=== PATIENT | female | born 1970 | race Hispanic/Latino ===

== ENCOUNTER → 2023-05-09 | Emergency (ER) | payer OTHER ==
[~2023-05-09] MED LIST: HYDROCODONE/APAP 5/325 MG TAB ONE; ONDANSETRON 4 MG (ODT) TAB ONE; methocarbamoL 750 MG TAB ONE
--- OUTSIDE RECORDS SUMMARY | 2023-05-09 17:14 | XMS REPORT | Continuity of Care Document ---
Author Name Unknown Address [address] [facility] [address] [place] [address] [facility] thconnect Address [address] [facility] [address] [place] [address] Care Team Providers Care Dining Room Manager Name Role Phone Kurt GIRARD, Kacie Pederson Primary Care Physician Sylvia Carrera Attending Clinician Unavailable LESLY CRUMP Attending Clinician Unavailable MARY LOMBARDI Attending Clinician Unavailable Doctor Unassigned, Kirkpatrick Attending Clinician U GREER Al Attending Clinician Unavailable Amanda Covington Attending Clinician [phone] Greer Rivers DO Attending Clinician [phone] Fara Villa MD Attending Clinician [phone] KACIE HICKS Attending Clinician Unava ilALFONZO Gordon Attending Clinician Unavaila ALFONZO Robert Attending Clinician Unavaila ble [id number] Attending Clinician Unavailable Kacie Hicks MD Attending Clinician [phone] Radiology Attending Clinician Unavailable RADIOLOGY Attending Clinician Unavailable Chet ABBOTT Diana J Attending Clinician [phone] Only, Adc Test Attending Clinician Unavailable Jarvis Flores MD Attending Clinician JARVIS FLORES Attending Clinician Unavailable FARA VILLA Admitting Clinician Unavailable Fara Villa MD Admitting Clinician [phone] Payers Payer Name Policy Type Policy Number Effective Date Expirati on Date Source CIGNA II [id number] 2019 00:00:00 CIGNA 53 [id number] 2018 00:00:00 [facility] CIGNA 2 [id number] 2021 00:00:00 CIGNA C1 [id number] [facility] CIGNA C1 [id number] [facility] CIGNA C1 [id number] [facility] CIGNA C1 [id number] [facility] CIGNA C1 [id number] [facility] Problems Condition Name Condition Details Condition Category Status Onset Date Resolution Date Last Treatment Date Treating Clinician Comments Source Obesity (BMI 30-39.9) Obesity (BMI 30-39.9) Disease Active 07-24 00:00: 00 [facility] Other chest pain Other chest pain Disease Active 07-24 00:00: 00 [facility] Type 1 diabetes mellitus without complicati on Type 1 diabetes mellitus without complicati on Disease Active 07-24 00:00: 00 [facility] Family history of early CAD Family history of early CAD Disease Active 07-24 00:00: 00 [facility] Primary hypertensi on Primary hypertensi on Disease Active 07-24 00:00: 00 [facility] Other hyperlipid emia Other hyperlipid emia Disease Active 07-24 00:00: 00 [facility] SAULO (acute kidney injury) SAULO (acute kidney injury) Disease Active 07-23 00:00: 00 [facility] Glaucoma Glaucoma Disease Active 2020-04 00:00: 00 Jayshree Seybold - Externa l 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, with long-term current use of insulin 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, with long-term current use of insulin Disease Active 2020-04 00:00: 00 Jayshree Seybold - Externa l Hypothyroi dism (acquired) Hypothyroi dism (acquired) Disease Active 2020-04 00:00: 00 Jayshree Seybold - Externa l Asthma Asthma Disease Active 2020-04 00:00: 00 Jayshree Seybold - Externa l Sleep apnea Sleep apnea Disease Active 2020-04 00:00: 00 Jayshree Seybold - Externa l No known active problems No known active problems Disease [facility] 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, bilateral Problem Active [facility] [id number] Presence of insulin pump Problem Active [facility] [id number] Hypothyroi dism, unspecifie d type Problem Active [facility] [id number] Hyperlipid emia, unspecifie d hyperlipid emia type Problem Active [facility] [id number] Open-angle glaucoma of both eyes, moderate stage, unspecifie d open-angle glaucoma type Problem Active [facility] [id number] Obstructiv e sleep apnea syndrome Problem Active [facility] Mild intermitte nt asthma Mild intermitte nt asthma without complicati on Problem Active [facility] [id number] Controlled type 1 diabetes mellitus with hyperglyce Problem Active [facility] [id number] White coat syndrome with diagnosis of hypertensi on Problem Active [facility] Allergies, Adverse Reactions, Alerts Allergy Name Allergy Type Status Severity Reaction(s) Onset Date Inactive Date Treating Clinician Comments Source NO KNOWN ALLERGIE S Drug Class Active [facility] Social History Social Habit Start Date Stop Date Quantity Comments Source History SDOH Alcohol Std Drinks [facility] History SDOH Alcohol Binge [facility] History SDOH Social Connections Get Together [facility] History SDOH Social Connections Latter Day [facility] History SDOH Social Connections Membership [facility] History SDOH Social Connections Meetings [facility] of [facility] Sex Assigned At [facility] Exposure to SARS-CoV-2 (event) 2022-07-14 00:00:00 2022-07-24 00:24:00 Not sure [facility] Tobacco use and exposure 2022-07-24 00:00:00 2022-07-24 00:00:00 Smokeless tobacco non-user [facility] History SDOH Alcohol Frequency 2022-07-24 00:00:00 2022-07-24 00:00:00 1 [facility] History SDOH Social Connections Phone 2022-07-24 00:00:00 2022-07-24 00:00:00 5 [facility] History SDOH Social Connections Living 2022-07-24 00:00:00 2022-07-24 00:00:00 3 [facility] History SDOH Physical Activity DPW 2022-07-24 00:00:00 2022-07-24 00:00:00 4 [facility] History SDOH Physical Activity MPS 2022-07-24 00:00:00 2022-07-24 00:00:00 2 [facility] History SDOH Financial 2022-07-24 00:00:00 2022-07-24 00:00:00 5 [facility] History SDOH Food Worry 2022-07-24 00:00:00 2022-07-24 00:00:00 1 [facility] History SDOH Food Scarcity 2022-07-24 00:00:00 2022-07-24 00:00:00 1 [facility] History SDOH Transport Med 2022-07-24 00:00:00 2022-07-24 00:00:00 2 [facility] History SDOH Transport Non-Med 2022-07-24 00:00:00 2022-07-24 00:00:00 2 [facility] History SDOH Housing Unable to Pay 2022-07-24 00:00:00 2022-07-24 00:00:00 2 [facility] History SDOH Housing Places Lived 2022-07-24 00:00:00 2022-07-24 00:00:00 1 [facility] History SDOH Housing Homeless Last Year 2022-07-24 00:00:00 2022-07-24 00:00:00 2 [facility] Education 2022-07-24 00:00:00 2022-07-24 00:00:00 18 [facility] History of Social function 2022-07-24 00:00:00 2022-07-24 00:00:00 [facility] Smoking Status Start Date Stop Date Source Never smoked tobacco [facility] Tobacco smoking consumption unknown [facility] Medications Ordered Medication Name Filled Medication Name Start Date Stop Date Current Medication? Ordering Clinician Indication Dosage Frequency Signature (SIG) Comments Components Source atorvastati n (LIPITOR) tablet 80 mg 07-25 02:00: 00 Yes 80mg 80 mg, Oral, QHS, First dose on Fri07/24/22 at 2100, Until Discontinu ed, Routine [facility] aspirin 81 mg chewable tablet 07-25 00:00: 00 08-25 04:59 :00 No [id number] 81mg Take 1 tablet by mouth in the morning for 30 days. [facility] aspirin 81 mg chewable tablet 07-25 00:00: 00 08-25 04:59 :00 No [id number] 81mg Take 1 tablet by mouth in the morning for 30 days. [facility] ergocalcife rol, vitamin d2, (VITAMIN D2) 1,250 mcg (50,000 unit) capsule 07-24 17:48: 03 Yes [id number] Take 1 capsule by mouth weekly. [facility] levothyroxi ne 112 mcg tablet 07-24 17:48: 03 Yes 112ug Take 1 tablet by mouth every morning. [facility] diltiazem 120 mg 24 hr capsule 07-24 17:48: 03 Yes 120mg Take 1 capsule by mouth in the morning. [facility] atorvastati n 80 mg tablet 07-24 17:48: 03 Yes 80mg Take 1 tablet by mouth at bedtime. [facility] irbesartan 300 mg tablet 07-24 17:48: 03 Yes 300mg Take 1 tablet by mouth in the morning. [facility] fluticasone furoate-alexandra anteroL (BREO ELLIPTA) 200-25 mcg/dose DsDv 07-24 17:48: 03 Yes 1{puff} Inhale 1 Puff in the morning. [facility] brimonidine -dorzolamid e, PF, 0.15-2 % Drop 07-24 17:48: 03 Yes 1[drp] Place 1 Drop in each eye in the morning and 1 Drop in the evening. [facility] latanoprost 0.005 % ophthalmic drops 07-24 17:48: 03 Yes 1[drp] 1 Drop every evening. [facility] dulaglutide (TRULICITY) 3 mg/0.5 mL PnIj 07-24 17:48: 03 Yes 3mg inject 1 Pen under the skin weekly. [facility] ergocalcife rol, vitamin d2, (VITAMIN D2) 1,250 mcg (50,000 unit) capsule 07-24 17:48: 03 Yes [id number] Take 1 capsule by mouth weekly. [facility] levothyroxi ne 112 mcg tablet 07-24 17:48: 03 Yes 112ug Take 1 tablet by mouth every morning. [facility] diltiazem 120 mg 24 hr capsule 07-24 17:48: 03 Yes 120mg Take 1 capsule by mouth in the morning. [facility] atorvastati n 80 mg tablet 07-24 17:48: 03 Yes 80mg Take 1 tablet by mouth at bedtime. [facility] irbesartan 300 mg tablet 07-24 17:48: 03 Yes 300mg Take 1 tablet by mouth in the morning. [facility] fluticasone furoate-alexandra anteroL (BREO ELLIPTA) 200-25 mcg/dose DsDv 07-24 17:48: 03 Yes 1{puff} Inhale 1 Puff in the morning. [facility] brimonidine -dorzolamid e, PF, 0.15-2 % Drop 07-24 17:48: 03 Yes 1[drp] Place 1 Drop in each eye in the morning and 1 Drop in the evening. [facility] latanoprost 0.005 % ophthalmic drops 07-24 17:48: 03 Yes 1[drp] 1 Drop every evening. [facility] dulaglutide (TRULICITY) 3 mg/0.5 mL PnIj 07-24 17:48: 03 Yes 3mg inject 1 Pen under the skin weekly. [facility] sulfur hexafluorid e microsphr (LUMASON) injection 5 mL 07-24 16:00: 00 07-24 16:00 :00 No [id number] 5mL 5 mL, Intravenou s, ONCE, 1 dose, On Fri07/24/22 at 1100, Routine
cruise staff member approving Restricted medication : ESTUARDO POOLE [facility] diltiazem XR (DILT-XR) capsule 120 mg 07-24 14:00: 00 Yes 120mg 120 mg, Oral, DAILY, First dose on Fri07/24/22 at 0900, Until Discontinu ed [facility] ergocalcife rol (vitamin d2) (CALCIFEROL ) capsule 50,000 Units 07-24 14:00: 00 Yes [id number] 50,000 Units, Oral, QWEEKLY, First dose on Fri07/24/22 at 0900, Until Discontinu ed, Routine [facility] levothyroxi ne (SYNTHROID) tablet 112 mcg 07-24 14:00: 00 Yes 112ug 112 mcg, Oral, QAM, First dose on Fri07/24/22 at 0900, Until Discontinu ed, Routine [facility] aspirin chewable tablet 81 mg 07-24 14:00: 00 Yes 81mg 81 mg, Oral, DAILY, First dose on Fri07/24/22 at 0900, Until Discontinu ed, Routine [facility] enoxaparin (LOVENOX) injection 40 mg 07-24 14:00: 00 Yes 40mg 40 mg, Subcutaneo us, DAILY, First dose on Fri07/24/22 at 0900, Until Discontinu ed, Routine [facility] NaCl 0.9% (NS) IV infusion 1,000 mL 07-24 07:00: 00 07-24 06:05 :57 No 1000mL at 100 mL/hr, IV Infusion, ONCE, 1 dose, On Fri07/24/22 at 0200, Routine [facility] latanoprost (XALATAN) 0.005 % ophthalmic drops 1 Drop 07-24 06:00: 00 Yes 1[drp] 1 Drop, Both Eyes, QPM, First dose on Fri07/24/22 at 0100, Until Discontinu ed, Routine [facility] NaCl 0.9% (NS) bolus infusion 1,000 mL 07-24 05:45: 00 07-24 04:49 :00 No 1000mL at 999 mL/hr, 1,000 mL, IV Infusion, ONCE, 1 dose, On Fri07/24/22 at 0045, STAT [facility] aspirin chewable tablet 324 mg 07-24 05:45: 00 07-24 04:37 :00 No 324mg 324 mg, Oral, ONCE, 1 dose, On Fri07/24/22 at 0045, Routine [facility] nitroglycer in (NITROSTAT) sublingual tablet 0.4 mg 07-24 04:57: 20 Yes .4mg 0.4 mg, Sublingual , Q5MIN PRN, Starting on Fri07/23/22 at 2357, Until Discontinu ed, Routine, Chest pain [facility] ondansetron (ZOFRAN (PF)) injection 4 mg 07-24 04:57: 20 Yes 4mg 4 mg, Slow IV Push, Q6HPRN, Starting on Fri07/23/22 at 2357, Until Discontinu ed, Routine, Nausea and Vomiting (N/V) [facility] acetaminoph en (TYLENOL) tablet 650 mg 07-24 04:57: 20 Yes 650mg 650 mg, Oral, Q6HPRN, Starting on Fri07/23/22 at 2357, Until Discontinu ed, Routine, Pain (scale 1-3) [facility] traMADoL (ULTRAM) tablet 50 mg 07-24 04:57: 20 07-26 04:56 :20 No 50mg 50 mg, Oral, Q8HPRN, Starting on Fri07/23/22 at 2357, Until Jennifer 07/25/22 at 2356, Routine, Pain (scale 4-6) [facility] morpHINE (2 mg/mL) injection 2 mg 07-24 04:57: 20 07-25 04:56 :20 No 2mg 2 mg, Slow IV Push, Q4HPRN, Starting on Fri07/23/22 at 2357, Until Fri07/24/22 at 2356, Routine, Pain (scale 7-10), Chest pain [facility] nitroglycer in 0.4 mg sublingual tablet 07-24 00:00: [id number] 1 tablet under the tongue every 5 (five) minutes as needed for Chest pain. [facility] nitroglycer in 0.4 mg sublingual tablet 07-24 00:00: [id number] 1 tablet under the tongue every 5 (five) minutes as needed for Chest pain. [facility] Atorvastati n Calcium 80 MG oral Tablet 04-23 13:19: 29 Yes 1{tbl} Take 1 tablet by mouth daily Jayshree benitez Latanoprost 0.005 % ophthalmic Solution 04-23 13:19: 29 Yes 1[drp] Place 1 drop into both eyes at bedtime Jayshree benitez methylPREDN ISolone 4 MG oral Tablet Therapy Pack 04-23 00:00: 00 Yes [id number] 05 1{dannielle} Take 1 dannielle by mouth See Admin Instructio ns Use as directed Jayshree benitez Azithromyci n 250 MG oral Tablet 04-23 00:00: 00 04-29 05:59 :00 No [id number] 05 Take 2 tablets by mouth on day 1 then 1 tablet by mouth daily for 4 days thereafter . Jayshree benitez Irbesartan 300 MG oral Tablet 2021-04 16:30: 40 01-22 00:00 :00 No 300mg Take 300 mg by mouth nightly Jayshree benitez Atorvastati n Calcium 80 MG oral Tablet 2021-04 15:46: 37 Yes 1{tbl} Take 1 tablet by mouth daily Jayshree benitez Latanoprost 0.005 % ophthalmic Solution 2021-04 15:46: 37 Yes 1[drp] Place 1 drop into both eyes at bedtime Jayshree benitez predniSONE 20 MG oral tablet 2021-04 15:46: 24 01-22 00:00 :00 No 20mg Take 20 mg by mouth daily Jayshree benitez Insulin Aspart 100 UNIT/ML subcutaneou s Solution 2021-04 15:45: 33 01-22 00:00 :00 No 95U Inject 95 units into the skin Use 95 units via insulin pump daily for 90 days Jayshree benitez Dulaglutide (Trulicity) 1.5 MG/0.5ML subcutaneou s Solution Pen-injecto r 2021-04 15:44: 38 01-22 00:00 :00 No 1{pen} Inject 1 pen into the skin once a week Jayshree Orellana l Amoxicillin -Pot Clavulanate 875-125 MG oral Tablet 2021-04 00:00: 00 Yes [id number] 1{tbl} Take 1 tablet by mouth 2 times daily Jayshree benitez TRIMETHOPRI M-POLYMYXIN B 82469-1.1 UNIT/ML-% ophthalmic Solution 2021-04 00:00: 00 Yes [id number] 9104 1[drp] Place 1 drop into both eyes every 6 (six) hours Jayshree Hubbarddemetriobayron Orellana eli Albuterol HFA 108 (90 Base) MCG/ACT IN AERS 2021-04 00:00: 00 Yes [id number] 2{puff} Q4H Inhale 2 puffs into the lungs every 4 hours as needed Jayshree Hubbarddemetriobayron Orellana eli Irbesartan 300 MG oral Tablet 2021-04 00:00: 00 Yes [id number] 300mg Take 1 tablet (300 mg total) by mouth nightly Jayshree Orellana eli Amoxicillin -Pot Clavulanate 875-125 MG oral Tablet 2021-04 00:00: 00 Yes [id number] 1{tbl} Take 1 tablet by mouth 2 times daily Jayshree benitez TRIMETHOPRI M-POLYMYXIN B 81324-6.1 UNIT/ML-% ophthalmic Solution 2021-04 00:00: 00 Yes [id number] 9104 1[drp] Place 1 drop into both eyes every 6 (six) hours Jayshree Hubbarddemetriobayron Orellana eli Albuterol HFA 108 (90 Base) MCG/ACT IN AERS 2021-04 00:00: 00 Yes [id number] 2{puff} Q4H Inhale 2 puffs into the lungs every 4 hours as needed Jayshree Sedemetriobayron Orellana eli Irbesartan 300 MG oral Tablet 2021-04 00:00: 00 Yes [id number] 300mg Take 1 tablet (300 mg total) by mouth nightly Jayshree Hubbarddemetriobayron Orellana eli Insulin Aspart 100 UNIT/ML injection Solution 2021-04 00:00: 00 Yes [id number] Inject 95 units into the skin daily Jayshree Sestuart Paeza eli Insulin Aspart 100 UNIT/ML injection Solution 2021-0410 00:00: 00 Yes [id number] Inject 95 units into the skin daily Jayshree Orellana l Trulicity 3 MG/0.5ML subcutaneou s Solution Pen-injecto r 11-23 00:00: 00 Yes INJECT 3 UNITS UNDER THE SKIN ONCE WEEKLY Jayshree benitez Trulicity 3 MG/0.5ML subcutaneou s Solution Pen-injecto r 11-23 00:00: 00 Yes INJECT 3 UNITS UNDER THE SKIN ONCE WEEKLY Jayshree benitez Atorvastati n Calcium 80 MG oral Tablet 07-20 13:54: 36 Yes 1{tbl} Take 1 tablet by mouth daily Jayshree Ga Insulin Aspart 100 UNIT/ML subcutaneou s Solution 07-20 13:54: 36 Yes 95U Inject 95 units into the skin Use 95 units via insulin pump daily for 90 days Jayshree Ga Dulaglutide (Trulicity) 1.5 MG/0.5ML subcutaneou s Solution Pen-injecto r 07-20 13:54: 36 Yes 1{pen} Inject 1 pen into the skin once a week Jayshree Ga predniSONE 20 MG oral tablet 07-20 13:54: 36 Yes 20mg Take 20 mg by mouth daily Jayshree Ga Latanoprost 0.005 % ophthalmic Solution 07-20 13:54: 36 Yes 1[drp] Place 1 drop into both eyes at bedtime Jayshree Ga Vitamin D, Ergocalcife rol, 1.25 MG (75504 UT) oral Capsule 07-06 00:00: 00 Yes 1{capsu le} Take 1 capsule by mouth once a week Jayshree Ga Vitamin D, Ergocalcife rol, 1.25 MG (31858 UT) oral Capsule 07-06 00:00: 00 Yes 1{capsu le} Take 1 capsule by mouth once a week Jayshree Seybold - Externa l Vitamin D, Ergocalcife rol, 1.25 MG (16759 UT) oral Capsule - 00:00: 00 Yes 1{capsu le} Take 1 capsule by mouth once a week Jayshree benitez Atorvastati n Calcium 80 MG oral Tablet 06-07 14:59: 33 Yes 1{tbl} Take 1 tablet by mouth daily Jayshree Ga Insulin Aspart (NovoLOG) 100 UNIT/ML subcutaneou s Solution 06-07 14:59: 33 Yes 95U Inject 95 units into the skin Use 95 units via insulin pump daily for 90 days Jayshree Ga Dulaglutide (Trulicity) 1.5 MG/0.5ML subcutaneou s Solution Pen-injecto r 06-07 14:59: 33 Yes 1{pen} Inject 1 pen into the skin once a week Jayshree Ga predniSONE 20 MG oral tablet 06-07 14:59: 33 Yes 20mg Take 20 mg by mouth daily Jayshree Ga Latanoprost 0.005 % ophthalmic Solution 06-07 14:59: 33 Yes 1[drp] Place 1 drop into both eyes at bedtime Jayshree Ga Diltiazem HCl CR 120 MG oral Capsule 24 Hour Sustained Release 06-07 00:00: 00 Yes [id number] 120mg Take 1 capsule (120 mg total) by mouth daily Jayshree Ga Diltiazem HCl CR 120 MG oral Capsule 24 Hour Sustained Release 24 00:00: 00 Yes [id number] 120mg Take 1 capsule (120 mg total) by mouth daily Jayshree benitez Diltiazem HCl CR 120 MG oral Capsule 24 Hour Sustained Release 24 00:00: 00 Yes [id number] 120mg Take 1 capsule (120 mg total) by mouth daily Jayshree Chatman Externa l Diltiazem HCl CR 120 MG oral Capsule 24 Hour Sustained Release 24 00:00: 00 Yes [id number] 120mg Take 1 capsule (120 mg total) by mouth daily Jayshree Ga Irbesartan 150 MG oral Tablet 05-28 00:00: 00 Yes [id number] 150mg Take 1 tablet (150 mg total) by mouth nightly Jayshree Ga Irbesartan 150 MG oral Tablet 05-28 00:00: 00 Yes [id number] 150mg Take 1 tablet (150 mg total) by mouth nightly Jayshree Ga Irbesartan 150 MG oral Tablet 05-28 00:00: 00 01-22 00:00 :00 No [id number] 150mg Take 1 tablet (150 mg total) by mouth nightly Jayshree Ga - Externa l hydroCHLORO thiazide 25 MG oral Tablet 2020-04 14:28: 38 03-23 00:00 :00 No 1{tbl} Take 1 tablet by mouth every morning Jayshree Ga Atorvastati n Calcium 80 MG oral Tablet 2020-04 14:02: 52 Yes 1{tbl} Take 1 tablet by mouth daily Jayshree Ga Insulin Aspart (NovoLOG) 100 UNIT/ML subcutaneou s Solution 2020-04 14:02: 52 Yes 95U Inject 95 units into the skin Use 95 units via insulin pump daily for 90 days Jayshree Ga Dulaglutide (Trulicity) 1.5 MG/0.5ML subcutaneou s Solution Pen-injecto r 2020-04 14:02: 52 Yes 1{pen} Inject 1 pen into the skin once a week Jayshree Ga predniSONE 20 MG oral tablet 2020-04 14:02: 52 Yes 20mg Take 20 mg by mouth daily Jayshree Ga Latanoprost 0.005 % ophthalmic Solution 2020-04 14:02: 52 Yes 1[drp] Place 1 drop into both eyes at bedtime Jayshree Ga Levothyroxi ne Sodium 100 MCG oral Tablet 2020-04 14:02: 47 03-23 00:00 :00 No 1{tbl} Take 1 tablet by mouth every 24 hours Jayshree Ga Fluticasone Furoate-Alexandra anterol (Breo Ellipta) 200-25 MCG/INH inhalation AEROSOL POWDER, BREATH ACTIVATED 2020-04 00:00: 00 Yes [id number] Inhale 1 inhalation into the lungs daily Jayshree Ga Diltiazem HCl CR 120 MG oral Capsule 24 Hour Sustained Release 2020-04 00:00: 00 Yes [id number] 120mg Take 1 capsule (120 mg total) by mouth daily Jayshree Ga hydroCHLORO thiazide 25 MG oral Tablet 2020-04 00:00: 00 Yes [id number] 25mg Take 1 tablet (25 mg total) by mouth every morning Jayshree Ga Fluticasone Furoate-Alexandra anterol (Breo Ellipta) 200-25 MCG/INH inhalation AEROSOL POWDER, BREATH ACTIVATED 2020-04 00:00: 00 Yes [id number] Inhale 1 inhalation into the lungs daily Jayshree Ga Fluticasone Furoate-Alexandra anterol (Breo Ellipta) 200-25 MCG/INH inhalation AEROSOL POWDER, BREATH ACTIVATED 2020-04 00:00: 00 Yes [id number] Inhale 1 inhalation into the lungs daily Jayshree Ga Fluticasone Furoate-Alexandra anterol (Breo Ellipta) 200-25 MCG/INH inhalation AEROSOL POWDER, BREATH ACTIVATED 2020-04 00:00: 00 Yes [id number] Inhale 1 inhalation into the lungs daily Jyashree Paeza eli Fluticasone Furoate-Alexandra anterol (Breo Ellipta) 200-25 MCG/INH inhalation AEROSOL POWDER, BREATH ACTIVATED 2020-04 00:00: 00 Yes [id number] Inhale 1 inhalation into the lungs daily Jayshree Paeza eli Diltiazem HCl CR 120 MG oral Capsule 24 Hour Sustained Release 2020-04 00:00: 00 06-07 00:00 :00 No [id number] 120mg Take 1 capsule (120 mg total) by mouth daily Jayshree Ga hydroCHLORO thiazide 25 MG oral Tablet 2020-04 00:00: 00 06-07 00:00 :00 No [id number] 25mg Take 1 tablet (25 mg total) by mouth every morning Jayshree Ga Levothyroxi ne Sodium 112 MCG oral Tablet 2020-04 00:00: 00 Yes 1{tbl} Take 1 tablet by mouth daily Jayshree Ga Levothyroxi ne Sodium 112 MCG oral Tablet 2020-04 00:00: 00 Yes 1{tbl} Take 1 tablet by mouth daily Jayshree Ga - Externa l Levothyroxi ne Sodium 112 MCG oral Tablet 2020-04 00:00: 00 Yes 1{tbl} Take 1 tablet by mouth daily Jayshree Ga - Externa l Levothyroxi ne Sodium 112 MCG oral Tablet 2020-04 00:00: 00 Yes 1{tbl} Take 1 tablet by mouth daily Jayshree Ga Levothyroxi ne Sodium 112 MCG oral Tablet 2020-04 00:00: 00 Yes 1{tbl} Take 1 tablet by mouth daily Jayshree Ga Irbesartan 300 MG oral Tablet 2020-04 15:15: 07 02-23 00:00 :00 No 1{tbl} Take 1 tablet by mouth daily Jayshree Ga Latanoprost 0.005 % ophthalmic Solution 2020-04 14:42: 04 Yes 1[drp] Place 1 drop into both eyes at bedtime Jayshree Ga Levothyroxi ne Sodium 100 MCG oral Tablet 2020-04 14:41: 32 Yes 1{tbl} Take 1 tablet by mouth every 24 hours Jayshree Ga hydroCHLORO thiazide 25 MG oral Tablet 2020-04 14:41: 32 Yes 1{tbl} Take 1 tablet by mouth every morning Jayshree Ga Insulin Aspart (NovoLOG) 100 UNIT/ML subcutaneou s Solution 2020-04 14:41: 32 Yes 95U Inject 95 units into the skin Use 95 units via insulin pump daily for 90 days Jayshree Ga Dulaglutide (Trulicity) 1.5 MG/0.5ML subcutaneou s Solution Pen-injecto r 2020-04 14:41: 32 Yes 1{pen} Inject 1 pen into the skin once a week Jayshree Ga Atorvastati n Calcium 80 MG oral Tablet 2020-04 14:41: 31 Yes 1{tbl} Take 1 tablet by mouth daily Jayshree Ga predniSONE 20 MG oral tablet 2020-04 14:41: 31 Yes 20mg Take 20 mg by mouth daily Jayshree Ga Prolensa 0.07 % ophthalmic Solution 2020-04 00:00: 00 Yes Jayshree Ga Irbesartan 150 MG oral Tablet 2020-04 00:00: 00 Yes [id number] 150mg Take 1 tablet (150 mg total) by mouth nightly Jayshree Sedemetriobayron Irbesartan 150 MG oral Tablet 2020-04 00:00: 00 Yes [id number] 150mg Take 1 tablet (150 mg total) by mouth nightly Jayshree Ga Prolensa 0.07 % ophthalmic Solution 2020-04 00:00: 00 Yes Jayshree Ga Prolensa 0.07 % ophthalmic Solution 2020-04 00:00: 00 Yes Jayshree Ga Prolensa 0.07 % ophthalmic Solution 2020-04 00:00: 00 01-22 00:00 :00 No Jayshree Ga - Externa l dilTIAZem HCl ER Beads 120 MG oral Capsule 24 Hour Sustained Release 2020-0 12-14 00:00: 00 Yes 1{capsu le} Take 1 capsule by mouth daily Jayshree Ga dilTIAZem HCl ER Beads 120 MG oral Capsule 24 Hour Sustained Release 2020-0 12-14 00:00: 00 Yes 1{capsu le} Take 1 capsule by mouth daily Jayshree Ga dilTIAZem HCl ER Beads 120 MG oral Capsule 24 Hour Sustained Release 0 12-14 00:00: 00 06-07 00:00 :00 No 1{capsu le} Take 1 capsule by mouth daily Jayshree Ga Latanoprost 0.005 % ophthalmic Solution 0 11-28 00:00: 00 Yes Jayshree Ga Latanoprost 0.005 % ophthalmic Solution 0 11-28 00:00: 00 Yes Jayshree Ga Latanoprost 0.005 % ophthalmic Solution 0 11-28 00:00: 00 06-07 00:00 :00 No Jayshree Ga Albuterol-I pratropium 2.5-0.5mg/3 ml Albuterol-I pratropium 2.5-0.5mg/3 ml 2020-0 7- 00:00: 00 No Albuterol- Ipratropiu m 2.5-0.5mg/ 3ml Albuterol-I pratropium 2.5-0.5mg/3 ml Albuterol-I pratropium 2.5-0.5mg/3 ml 11-01 00:00: 00 No Albuterol- Ipratropiu m 2.5-0.5mg/ 3ml Albuterol-I pratropium 2.5-0.5mg/3 ml Albuterol-I pratropium 2.5-0.5mg/3 ml 11-01 00:00: 00 No Albuterol- Ipratropiu m 2.5-0.5mg/ 3ml Albuterol-I pratropium 2.5-0.5mg/3 ml Albuterol-I pratropium 2.5-0.5mg/3 ml 11-01 00:00: 00 No Albuterol- Ipratropiu m 2.5-0.5mg/ 3ml Albuterol-I pratropium 2.5-0.5mg/3 ml Albuterol-I pratropium 2.5-0.5mg/3 ml 11-01 00:00: 00 No Albuterol- Ipratropiu m 2.5-0.5mg/ 3ml Fluticasone Furoate-Alexandra anterol (Breo Ellipta) 200-25 MCG/INH inhalation AEROSOL POWDER, BREATH ACTIVATED 11-01 00:00: 00 03-02 05:59 :00 No 1{puff} 1 puff every 24 hours Jayshree Ga Breo Ellipta 200-25 MCG/INH Breo Ellipta 200-25 MCG/INH 11-01 00:00: 00 03-01 00:00 :00 No 1{puff} QD Breo Ellipta 200-25 MCG/INH predniSONE 20 MG predniSONE 20 MG 11-01 00:00: 00 11-21 00:00 :00 No 1{table t} predniSONE 20 MG methylpredn isolone sod succ (SOLU-MEDRO L) injection 125 mg 07-23 19:30: 00 07-23 18:31 :00 No 125mg 125 mg, IV Piggyback, ONCE, 1 dose, 07/23/20 at 1430, [facility] ipratropium (ATROVENT) 0.02 % nebulizer solution 0.5 mg 07-23 18:30: 00 07-23 18:34 :00 No .5mg 0.5 mg, Inhalation , ONCE, 1 dose, 07/23/20 at 1330, [facility] albuterol (PROVENTIL) 2.5 mg /3 mL (0.083 %) nebulizer solution 5 mg 07-23 18:30: 00 07-23 18:34 :00 No 5mg 5 mg, Inhalation , ONCE, 1 dose, 07/23/20 at 1330, [facility] Albuterol HFA 108 (90 Base) MCG/ACT IN AERS 07-23 00:00: 00 Yes 2{puff} Q4H Inhale 2 puffs into the lungs every 4 hours as needed Jayshree Seybold Albuterol HFA 108 (90 Base) MCG/ACT IN AERS 07-23 00:00: 00 Yes 2{puff} Q4H Inhale 2 puffs into the lungs every 4 hours as needed Jayshree ybold Albuterol (PROVENTIL) (2.5 MG/3ML) 0.083% inhalation Inhalant Solution 07-23 00:00: 00 Yes 2.5mg Inhale 2.5 mg into the lungs every 4 (four) hours Jayshree Seybold Albuterol HFA 108 (90 Base) MCG/ACT IN AERS 07-23 00:00: 00 Yes 2{puff} Q4H Inhale 2 puffs into the lungs every 4 hours as needed Jayshree Seybold Albuterol (PROVENTIL) (2.5 MG/3ML) 0.083% inhalation Inhalant Solution 07-23 00:00: 00 Yes 2.5mg Inhale 2.5 mg into the lungs every 4 (four) hours Jayshree Seybold Albuterol HFA 108 (90 Base) MCG/ACT IN AERS 07-23 00:00: 00 Yes 2{puff} Q4H Inhale 2 puffs into the lungs every 4 hours as needed Jayshree Ga albuterol 90 mcg/actuati on inhaler 07-23 00:00: 00 Yes [id number] 2{puff} Inhale 2 Puffs every 4 (four) hours as needed for Wheezing or Shortness of Breath. [facility] albuterol 2.5 mg /3 mL (0.083 %) nebulizer solution 07-23 00:00: 00 Yes [id number] 2.5mg Inhale 3 mL every 4 (four) hours. May also nebulize one extra every 6 hours. [facility] albuterol 90 mcg/actuati on inhaler 07-23 00:00: 00 Yes [id number] 2{puff} Inhale 2 Puffs every 4 (four) hours as needed for Wheezing or Shortness of Breath. [facility] albuterol 2.5 mg /3 mL (0.083 %) nebulizer solution 07-23 00:00: 00 Yes [id number] 2.5mg Inhale 3 mL every 4 (four) hours. May also nebulize one extra every 6 hours. [facility] albuterol 90 mcg/actuati on inhaler 07-23 00:00: 00 Yes [id number] 2{puff} Inhale 2 Puffs every 4 (four) hours as needed for Wheezing or Shortness of Breath. [facility] albuterol 2.5 mg /3 mL (0.083 %) nebulizer solution 07-23 00:00: 00 Yes [id number] 2.5mg Inhale 3 mL every 4 (four) hours. May also nebulize one extra every 6 hours. [facility] albuterol 90 mcg/actuati on inhaler 07-23 00:00: 00 Yes [id number] 2{puff} Inhale 2 Puffs every 4 (four) hours as needed for Wheezing or Shortness of Breath. [facility] albuterol 2.5 mg /3 mL (0.083 %) nebulizer solution 07-23 00:00: 00 Yes [id number] 2.5mg Inhale 3 mL every 4 (four) hours. May also nebulize one extra every 6 hours. [facility] albuterol 90 mcg/actuati on inhaler 07-23 00:00: 00 Yes [id number] 2{puff} Inhale 2 Puffs every 4 (four) hours as needed for Wheezing or Shortness of Breath. [facility] albuterol 2.5 mg /3 mL (0.083 %) nebulizer solution 07-23 00:00: 00 Yes [id number] 2.5mg Inhale 3 mL every 4 (four) hours. May also nebulize one extra every 6 hours. [facility] albuterol 90 mcg/actuati on inhaler 07-23 00:00: 00 Yes [id number] 2{puff} Inhale 2 Puffs every 4 (four) hours as needed for Wheezing or Shortness of Breath. [facility] albuterol 2.5 mg /3 mL (0.083 %) nebulizer solution 07-23 00:00: 00 Yes [id number] 2.5mg Inhale 3 mL every 4 (four) hours. May also nebulize one extra every 6 hours. [facility] Albuterol HFA 108 (90 Base) MCG/ACT IN AERS 07-23 00:00: 00 01-22 00:00 :00 No 2{puff} Q4H Inhale 2 puffs into the lungs every 4 hours as needed Jayshree benitez Albuterol (PROVENTIL) (2.5 MG/3ML) 0.083% inhalation Inhalant Solution 07-23 00:00: 00 06-07 00:00 :00 No 2.5mg Inhale 2.5 mg into the lungs every 4 (four) hours Jayshree Ga predniSONE 10 mg tablet 07-23 00:00: 00 07-28 04:59 :00 No [id number] 50mg Take 5 tablets by mouth daily for 4 days. [facility] ProAir HFA 108 (90 Base) MCG/ACT ProAir HFA 108 (90 Base) MCG/ACT 11-03 00:00: 00 No 2{puffs _as_nee ded} QID ProAir HFA 108 (90 Base) MCG/ACT ProAir HFA 108 (90 Base) MCG/ACT ProAir HFA 108 (90 Base) MCG/ACT 11-03 00:00: 00 No 2{puffs _as_nee ded} QID ProAir HFA 108 (90 Base) MCG/ACT ProAir HFA 108 (90 Base) MCG/ACT ProAir HFA 108 (90 Base) MCG/ACT 11-03 00:00: 00 No 2{puffs _as_nee ded} QID ProAir HFA 108 (90 Base) MCG/ACT ProAir HFA 108 (90 Base) MCG/ACT ProAir HFA 108 (90 Base) MCG/ACT 11-03 00:00: 00 No 2{puffs _as_nee ded} QID ProAir HFA 108 (90 Base) MCG/ACT ProAir HFA 108 (90 Base) MCG/ACT ProAir HFA 108 (90 Base) MCG/ACT 11-03 00:00: 00 No 2{puffs _as_nee ded} QID ProAir HFA 108 (90 Base) MCG/ACT ProAir HFA 108 (90 Base) MCG/ACT ProAir HFA 108 (90 Base) MCG/ACT 11-03 00:00: 00 No 2{puffs _as_nee ded} QID ProAir HFA 108 (90 Base) MCG/ACT ProAir HFA 108 (90 Base) MCG/ACT ProAir HFA 108 (90 Base) MCG/ACT 11-03 00:00: 00 No 2{puffs _as_nee ded} QID ProAir HFA 108 (90 Base) MCG/ACT ProAir HFA 108 (90 Base) MCG/ACT ProAir HFA 108 (90 Base) MCG/ACT 11-03 00:00: 00 No 2{puffs _as_nee ded} QID ProAir HFA 108 (90 Base) MCG/ACT ProAir HFA 108 (90 Base) MCG/ACT ProAir HFA 108 (90 Base) MCG/ACT 11-03 00:00: 00 No 2{puffs _as_nee ded} QID ProAir HFA 108 (90 Base) MCG/ACT ProAir HFA 108 (90 Base) MCG/ACT ProAir HFA 108 (90 Base) MCG/ACT 11-03 00:00: 00 No 2{puffs _as_nee ded} QID ProAir HFA 108 (90 Base) MCG/ACT Atorvastati n Calcium Atorvastati n Calcium Yes Sylvia Cottle 1 tablet [facility] Hydrochloro thiazide Hydrochloro thiazide Yes Sylvia Cottle 1 tablet in the morning [facility] Levothyroxi ne Sodium 100 MCG Levothyroxi ne Sodium 100 MCG No QD Levothyrox ine Sodium 100 MCG Atorvastati n Calcium 80 MG Atorvastati n Calcium 80 MG No Atorvastat in Calcium 80 MG dilTIAZem HCl ER Beads 120 MG dilTIAZem HCl ER Beads 120 MG No 1{capsu le} QD dilTIAZem HCl ER Beads 120 MG Irbesartan 300 MG Irbesartan 300 MG No 1{table t} QD Irbesartan 300 MG hydroCHLORO thiazide 25 MG hydroCHLORO thiazide 25 MG No hydroCHLOR Othiazide 25 MG Latanoprost 0.005 % Latanoprost 0.005 % No Latanopros t 0.005 % NovoLOG 100 UNIT/ML NovoLOG 100 UNIT/ML No NovoLOG 100 UNIT/ML Trulicity 1.5 MG/0.5ML Trulicity 1.5 MG/0.5ML No Trulicity 1.5 MG/0.5ML Irbesartan 300 MG Irbesartan 300 MG No 1{table t} QD Irbesartan 300 MG Atorvastati n Calcium 80 MG Atorvastati n Calcium 80 MG No Atorvastat in Calcium 80 MG Latanoprost 0.005 % Latanoprost 0.005 % No Latanopros t 0.005 % Trulicity 1.5 MG/0.5ML Trulicity 1.5 MG/0.5ML No Trulicity 1.5 MG/0.5ML NovoLOG 100 UNIT/ML NovoLOG 100 UNIT/ML No NovoLOG 100 UNIT/ML Levothyroxi ne Sodium 100 MCG Levothyroxi ne Sodium 100 MCG No QD Levothyrox ine Sodium 100 MCG hydroCHLORO thiazide 25 MG hydroCHLORO thiazide 25 MG No hydroCHLOR Othiazide 25 MG dilTIAZem HCl ER Beads 120 MG dilTIAZem HCl ER Beads 120 MG No 1{capsu le} QD dilTIAZem HCl ER Beads 120 MG Irbesartan 300 MG Irbesartan 300 MG No Irbesartan 300 MG Atorvastati n Calcium 80 MG Atorvastati n Calcium 80 MG No 1{table t} QD Atorvastat in Calcium 80 MG hydroCHLORO thiazide 25 MG hydroCHLORO thiazide 25 MG No hydroCHLOR Othiazide 25 MG NovoLOG 100 UNIT/ML NovoLOG 100 UNIT/ML No NovoLOG 100 UNIT/ML Levothyroxi ne Sodium 100 MCG Levothyroxi ne Sodium 100 MCG No QD Levothyrox ine Sodium 100 MCG dilTIAZem HCl ER Beads 120 MG dilTIAZem HCl ER Beads 120 MG No dilTIAZem HCl ER Beads 120 MG Trulicity 1.5 MG/0.5ML Trulicity 1.5 MG/0.5ML No Trulicity 1.5 MG/0.5ML Latanoprost 0.005 % Latanoprost 0.005 % No Latanopros t 0.005 % Aspirin 81 81 MG Aspirin 81 81 MG No 1{table t} QD Aspirin 81 81 MG Atorvastati n Calcium 80 MG Atorvastati n Calcium 80 MG No 1{table t} QD Atorvastat in Calcium 80 MG Albuterol Sulfate HFA 108 (90 Base) MCG/ACT Albuterol Sulfate HFA 108 (90 Base) MCG/ACT No Albuterol Sulfate HFA 108 (90 Base) MCG/ACT Brimonidine -Dorzolamid e 0.15-2 % Brimonidine -Dorzolamid e 0.15-2 % No Brimonidin e-Dorzolam jericho 0.15-2 % Breo Ellipta 200-25 MCG/ACT Breo Ellipta 200-25 MCG/ACT No 1{puff} QD Breo Ellipta 200-25 MCG/ACT NovoLOG 100 UNIT/ML NovoLOG 100 UNIT/ML No NovoLOG 100 UNIT/ML Levothyroxi ne Sodium 112 MCG Levothyroxi ne Sodium 112 MCG No QD Levothyrox ine Sodium 112 MCG Latanoprost 0.005 % Latanoprost 0.005 % No Latanopros t 0.005 % Irbesartan 300 MG Irbesartan 300 MG No Irbesartan 300 MG Trulicity 3 MG/0.5ML Trulicity 3 MG/0.5ML No Trulicity 3 MG/0.5ML Vitamin D3 1.25 MG (25552 UT) Vitamin D3 1.25 MG (14409 UT) No 1{capsu le} Vitamin D3 1.25 MG (07405 UT) dilTIAZem HCl ER Beads 120 MG dilTIAZem HCl ER Beads 120 MG No 1{capsu le} QD dilTIAZem HCl ER Beads 120 MG hydroCHLORO thiazide 25 MG hydroCHLORO thiazide 25 MG No hydroCHLOR Othiazide 25 MG Aspirin 81 81 MG Aspirin 81 81 MG No 1{table t} QD Aspirin 81 81 MG Atorvastati n Calcium 80 MG Atorvastati n Calcium 80 MG No 1{table t} QD Atorvastat in Calcium 80 MG Brimonidine -Dorzolamid e 0.15-2 % Brimonidine -Dorzolamid e 0.15-2 % No Brimonidin e-Dorzolam jericho 0.15-2 % Breo Ellipta 200-25 MCG/ACT Breo Ellipta 200-25 MCG/ACT No 1{puff} QD Breo Ellipta 200-25 MCG/ACT Albuterol Sulfate HFA 108 (90 Base) MCG/ACT Albuterol Sulfate HFA 108 (90 Base) MCG/ACT No Albuterol Sulfate HFA 108 (90 Base) MCG/ACT Vitamin D3 1.25 MG (29017 UT) Vitamin D3 1.25 MG (94310 UT) No 1{capsu le} Vitamin D3 1.25 MG (49894 UT) NovoLOG 100 UNIT/ML NovoLOG 100 UNIT/ML No NovoLOG 100 UNIT/ML Latanoprost 0.005 % Latanoprost 0.005 % No Latanopros t 0.005 % Irbesartan 300 MG Irbesartan 300 MG No Irbesartan 300 MG Trulicity 3 MG/0.5ML Trulicity 3 MG/0.5ML No Trulicity 3 MG/0.5ML dilTIAZem HCl ER Beads 120 MG dilTIAZem HCl ER Beads 120 MG No 1{capsu le} QD dilTIAZem HCl ER Beads 120 MG Levothyroxi ne Sodium 112 MCG Levothyroxi ne Sodium 112 MCG No QD Levothyrox ine Sodium 112 MCG hydroCHLORO thiazide 25 MG hydroCHLORO thiazide 25 MG No hydroCHLOR Othiazide 25 MG Albuterol Sulfate HFA 108 (90 Base) MCG/ACT Albuterol Sulfate HFA 108 (90 Base) MCG/ACT No Albuterol Sulfate HFA 108 (90 Base) MCG/ACT Irbesartan 300 MG Irbesartan 300 MG No Irbesartan 300 MG Levothyroxi ne Sodium 112 MCG Levothyroxi ne Sodium 112 MCG No QD Levothyrox ine Sodium 112 MCG NovoLOG 100 UNIT/ML NovoLOG 100 UNIT/ML No NovoLOG 100 UNIT/ML Breo Ellipta 200-25 MCG/ACT Breo Ellipta 200-25 MCG/ACT No 1{puff} QD Breo Ellipta 200-25 MCG/ACT Brimonidine -Dorzolamid e 0.15-2 % Brimonidine -Dorzolamid e 0.15-2 % No Brimonidin e-Dorzolam jericho 0.15-2 % dilTIAZem HCl ER Beads 120 MG dilTIAZem HCl ER Beads 120 MG No 1{capsu le} QD dilTIAZem HCl ER Beads 120 MG Atorvastati n Calcium 80 MG Atorvastati n Calcium 80 MG No 1{table t} QD Atorvastat in Calcium 80 MG Aspirin 81 81 MG Aspirin 81 81 MG No 1{table t} QD Aspirin 81 81 MG Mounjaro 5 MG/0.5ML Mounjaro 5 MG/0.5ML No Mounjaro 5 MG/0.5ML Levothyroxi ne Sodium 100 MCG Levothyroxi ne Sodium 100 MCG No QD Levothyrox ine Sodium 100 MCG NovoLog 100 UNIT/ML NovoLog 100 UNIT/ML No NovoLog 100 UNIT/ML Diltiazem HCl ER Beads 120 MG Diltiazem HCl ER Beads 120 MG No 1{capsu le} QD Diltiazem HCl ER Beads 120 MG Hydrochloro thiazide 25 MG Hydrochloro thiazide 25 MG No Hydrochlor othiazide 25 MG Trulicity 1.5 MG/0.5ML Trulicity 1.5 MG/0.5ML No Trulicity 1.5 MG/0.5ML Irbesartan 300 MG Irbesartan 300 MG No 1{table t} QD Irbesartan 300 MG Latanoprost 0.005 % Latanoprost 0.005 % No Latanopros t 0.005 % Atorvastati n Calcium 80 MG Atorvastati n Calcium 80 MG No Atorvastat in Calcium 80 MG Levothyroxi ne Sodium 100 MCG Levothyroxi ne Sodium 100 MCG No QD Levothyrox ine Sodium 100 MCG Atorvastati n Calcium 80 MG Atorvastati n Calcium 80 MG No Atorvastat in Calcium 80 MG Diltiazem HCl ER Beads 120 MG Diltiazem HCl ER Beads 120 MG No 1{capsu le} QD Diltiazem HCl ER Beads 120 MG Trulicity 1.5 MG/0.5ML Trulicity 1.5 MG/0.5ML No Trulicity 1.5 MG/0.5ML Hydrochloro thiazide 25 MG Hydrochloro thiazide 25 MG No Hydrochlor othiazide 25 MG Irbesartan 300 MG Irbesartan 300 MG No 1{table t} QD Irbesartan 300 MG NovoLog 100 UNIT/ML NovoLog 100 UNIT/ML No NovoLog 100 UNIT/ML Latanoprost 0.005 % Latanoprost 0.005 % No Latanopros t 0.005 % Levothyroxi ne Sodium 100 MCG Levothyroxi ne Sodium 100 MCG No QD Levothyrox ine Sodium 100 MCG Atorvastati n Calcium 80 MG Atorvastati n Calcium 80 MG No Atorvastat in Calcium 80 MG Diltiazem HCl ER Beads 120 MG Diltiazem HCl ER Beads 120 MG No 1{capsu le} QD Diltiazem HCl ER Beads 120 MG Trulicity 1.5 MG/0.5ML Trulicity 1.5 MG/0.5ML No Trulicity 1.5 MG/0.5ML Hydrochloro thiazide 25 MG Hydrochloro thiazide 25 MG No Hydrochlor othiazide 25 MG Irbesartan 300 MG Irbesartan 300 MG No 1{table t} QD Irbesartan 300 MG NovoLog 100 UNIT/ML NovoLog 100 UNIT/ML No NovoLog 100 UNIT/ML Latanoprost 0.005 % Latanoprost 0.005 % No Latanopros t 0.005 % Levothyroxi ne Sodium 100 MCG Levothyroxi ne Sodium 100 MCG No QD Levothyrox ine Sodium 100 MCG Atorvastati n Calcium 80 MG Atorvastati n Calcium 80 MG No Atorvastat in Calcium 80 MG dilTIAZem HCl ER Beads 120 MG dilTIAZem HCl ER Beads 120 MG No 1{capsu le} QD dilTIAZem HCl ER Beads 120 MG Irbesartan 300 MG Irbesartan 300 MG No 1{table t} QD Irbesartan 300 MG hydroCHLORO thiazide 25 MG hydroCHLORO thiazide 25 MG No hydroCHLOR Othiazide 25 MG Latanoprost 0.005 % Latanoprost 0.005 % No Latanopros t 0.005 % NovoLOG 100 UNIT/ML NovoLOG 100 UNIT/ML No NovoLOG 100 UNIT/ML Trulicity 1.5 MG/0.5ML Trulicity 1.5 MG/0.5ML No Trulicity 1.5 MG/0.5ML Immunizations Ordered Immunization Name Filled Immunization Name Date Status Comments Source Pfizer COVID-19 Vaccine Pfizer COVID-19 Vaccine 2020-07-01 13:17:00 Completed [facility] Pfizer COVID-19 Vaccine Pfizer COVID-19 Vaccine 2020-07-01 13:17:00 Completed [facility] Pfizer COVID-19 Vaccine Pfizer COVID-19 Vaccine 2020-07-01 13:17:00 Completed [facility] Pfizer COVID-19 Vaccine Pfizer COVID-19 Vaccine 2020-07-01 13:17:00 Completed [facility] Pfizer COVID-19 Vaccine Pfizer COVID-19 Vaccine 2020-07-01 13:17:00 Completed [facility] Pfizer COVID-19 Vaccine Pfizer COVID-19 Vaccine 2020-07-01 13:17:00 Completed [facility] Pfizer COVID-19 Vaccine Pfizer COVID-19 Vaccine 2020-07-01 13:17:00 Completed [facility] Covid-19 Vaccine ([facility]), Mrna-lnp, [employer], Pf, 30mcg/0.3ml,IM 2020-07-01 00:00:00 Completed Jayshree Seybold Covid-19 Vaccine (Pfizer), Mrna-lnp, Sudhir [employer], Pf, 30mcg/0.3ml,IM 2020-07-01 00:00:00 Completed Jayshree Seybold Covid-19 Vaccine (Pfizer), Mrna-lnp, [employer], Pf, 30mcg/0.3ml,IM 2020-07-01 00:00:00 Completed Jayshree Seybold Covid-19 Vaccine (Pfizer), Mrna-lnp, [employer], Pf, 30mcg/0.3ml,IM 2020-07-01 00:00:00 Completed Jayshree Seybold Covid-19 Vaccine (Pfizer), Mrna-lnp, [employer], Pf, 30mcg/0.3ml,IM 2020-07-01 00:00:00 Completed Jayshree Seybold - External Covid-19 Vaccine (Pfizer), Mrna-lnp, [employer], Pf, 30mcg/0.3ml,IM 2020-07-01 00:00:00 Completed Jayshree Seybold - External Covid-19 Vaccine (Pfizer), Mrna-lnp, [employer], Pf, 30mcg/0.3ml,IM 2020-07-01 00:00:00 Completed Jayshree Seybold - External Covid-19 Vaccine (Pfizer), Mrna-lnp, [employer], Pf, 30mcg/0.3ml,IM 2020-07-01 00:00:00 Completed Jayshree Seybold - External Covid-19 Vaccine (Pfizer), Mrna-lnp, [employer], Pf, 30mcg/0.3ml,IM 2020-07-01 00:00:00 Completed Jayshree Knightold SARS-COV-2 COVID-19 PFIZER VACCINE 2020-07-01 00:00:00 Completed [facility] SARS-COV-2 COVID-19 PFIZER VACCINE 2020-07-01 00:00:00 Completed [facility] SARS-COV-2 COVID-19 PFIZER VACCINE 2020-07-01 00:00:00 Completed [facility] SARS-COV-2 COVID-19 PFIZER VACCINE 2020-07-01 00:00:00 Completed [facility] SARS-COV-2 COVID-19 PFIZER VACCINE 2020-07-01 00:00:00 Completed [facility] SARS-COV-2 COVID-19 PFIZER VACCINE 2020-07-01 00:00:00 Completed [facility] SARS-COV-2 COVID-19 PFIZER VACCINE 2020-07-01 00:00:00 Completed [facility] Pfizer COVID-19 Vaccine Pfizer COVID-19 Vaccine 2020-06-10 13:16:00 Completed [facility] Pfizer COVID-19 Vaccine Pfizer COVID-19 Vaccine 2020-06-10 13:16:00 Completed [facility] Pfizer COVID-19 Vaccine Pfizer COVID-19 Vaccine 2020-06-10 13:16:00 Completed [facility] Pfizer COVID-19 Vaccine Pfizer COVID-19 Vaccine 2020-06-10 13:16:00 Completed [facility] Pfizer COVID-19 Vaccine Pfizer COVID-19 Vaccine 2020-06-10 13:16:00 Completed [facility] Pfizer COVID-19 Vaccine Pfizer COVID-19 Vaccine 2020-06-10 13:16:00 Completed [facility] Pfizer COVID-19 Vaccine Pfizer COVID-19 Vaccine 2020-06-10 13:16:00 Completed [facility] Covid-19 Vaccine ([facility]), Mrna-lnp, [employer], Pf, 30mcg/0.3ml,IM 2020-06-10 00:00:00 Completed Jayshree Knightold Covid-19 Vaccine (Pfizer), Mrna-lnp, [employer], Pf, 30mcg/0.3ml,IM 2020-06-10 00:00:00 Completed Jayshree Knightold Covid-19 Vaccine (Pfizer), Mrna-lnp, [employer], Pf, 30mcg/0.3ml,IM 2020-06-10 00:00:00 Completed Jayshree Knightold Covid-19 Vaccine (Pfizer), Mrna-lnp, [employer], Pf, 30mcg/0.3ml,IM 2020-06-10 00:00:00 Completed Jayshree Seybold Covid-19 Vaccine (Pfizer), Mrna-lnp, [employer], Pf, 30mcg/0.3ml,IM 2020-06-10 00:00:00 Completed Jayshree Seybold - External Covid-19 Vaccine (Pfizer), Mrna-lnp, [employer], Pf, 30mcg/0.3ml,IM 2020-06-10 00:00:00 Completed Jayshree Seybold - External Covid-19 Vaccine (Pfizer), Mrna-lnp, [employer], Pf, 30mcg/0.3ml,IM 2020-06-10 00:00:00 Completed Jayshree Seybold - External Covid-19 Vaccine (Pfizer), Mrna-lnp, [employer] Protein, Pf, 30mcg/0.3ml,IM 2020-06-10 00:00:00 Completed Jayshree Seybold - External Covid-19 Vaccine (Pfizer), Mrna-lnp, [employer], Pf, 30mcg/0.3ml,IM 2020-06-10 00:00:00 Completed Jayshree Ga SARS-COV-2 COVID-19 PFIZER VACCINE 2020-06-10 00:00:00 Completed [facility] SARS-COV-2 COVID-19 PFIZER VACCINE 2020-06-10 00:00:00 Completed [facility] SARS-COV-2 COVID-19 PFIZER VACCINE 2020-06-10 00:00:00 Completed [facility] SARS-COV-2 COVID-19 PFIZER VACCINE 2020-06-10 00:00:00 Completed [facility] SARS-COV-2 COVID-19 PFIZER VACCINE 2020-06-10 00:00:00 Completed [facility] SARS-COV-2 COVID-19 PFIZER VACCINE 2020-06-10 00:00:00 Completed [facility] SARS-COV-2 COVID-19 PFIZER VACCINE 2020-06-10 00:00:00 Completed [facility] Pfizer COVID-19 Vaccine Pfizer COVID-19 Vaccine Unknown Completed [facility] Pfizer COVID-19 Vaccine Pfizer COVID-19 Vaccine Unknown Completed [facility] Pfizer COVID-19 Vaccine Pfizer COVID-19 Vaccine Unknown Completed [facility] Pfizer COVID-19 Vaccine Pfizer COVID-19 Vaccine Unknown Completed [facility] Pfizer COVID-19 Vaccine Pfizer COVID-19 Vaccine Unknown Completed [facility] Pfizer COVID-19 Vaccine Pfizer COVID-19 Vaccine Unknown Completed [facility] Vital Signs Vital Name Observation Time Observation Value Comments S ph[facility]ongce height 2023-01-17 10:40:00 62 [in_i] Commo n [facility] weight 2023-01-17 10:40:00 200.8 [lb_av] Co [facility] temperature 2023-01-17 10:40:00 98.1 [degF] Com [facility] bmi 2023-01-17 10:40:00 36.72 kg/m2 Comm on [facility] oximetry 2023-01-17 10:40:00 95 % Commo n [facility] respiratory rate 2023-01-17 10:40:00 16 /min [facility] blood pressure systolic 2023-01-17 10:40:00 138 mm[Hg] [facility] blood pressure diastolic 2023-01-17 10:40:00 70 mm[Hg] [facility] height 2022-10-18 09:40:00 62 [in_i] Commo n [facility] weight 2022-10-18 09:40:00 200.6 [lb_av] Co mmon [facility] temperature 2022-10-18 09:40:00 97.9 [degF] Com [facility] bmi 2022-10-18 09:40:00 36.69 kg/m2 Comm on [facility] oximetry 2022-10-18 09:40:00 98 % Commo n [facility] respiratory rate 2022-10-18 09:40:00 16 /min [facility] blood pressure systolic 2022-10-18 09:40:00 136 mm[Hg] Common [facility] blood pressure diastolic 2022-10-18 09:40:00 61 mm[Hg] [facility] height 2022-08-12 11:40:00 62 [in_i] Commo n [facility] weight 2022-08-12 11:40:00 201.2 [lb_av] Co mmon [facility] temperature 2022-08-12 11:40:00 98.1 [degF] Com mon [facility] bmi 2022-08-12 11:40:00 36.8 kg/m2 Comm n [facility] oximetry 2022-08-12 11:40:00 95 % [facility] respiratory rate 2022-08-12 11:40:00 18 /min [facility] blood pressure systolic 2022-08-12 11:40:00 138 mm[Hg] [facility] blood pressure diastolic 2022-08-12 11:40:00 71 mm[Hg] [facility] Systolic blood pressure 2022-07-24 21:33:00 142 mm[Hg] [facility] Diastolic blood pressure 2022-07-24 21:33:00 59 mm[Hg] [facility] Heart rate 2022-07-24 21:33:00 64 /min [facility] 2022-07-24 21:33:00 36.39 Eloise [facility] Respiratory rate 2022-07-24 21:33:00 18 /min [facility] Oxygen saturation in Arterial blood by Pulse oximetry 2022-07-24 21:33:00 99 /min [facility] Body weight 2022-07-24 08:27:00 90.493 kg [facility] hospital BMI 2022-07-24 08:27:00 36.49 kg/m2 [facility] Body height 2022-07-24 05:40:00 157.5 cm [facility] Systolic blood pressure 2022-04-23 19:18:00 141 mm[Hg] Jayshree Seybo ld - External Diastolic blood pressure 2022-04-23 19:18:00 80 mm[Hg] Jayshree Seybo ld - External Heart rate 2022-04-23 19:18:00 92 /min Kelse y Seybold - External Body temperature 2022-04-23 19:18:00 37.39 Eloise Jayshree Seybold - External Respiratory rate 2022-04-23 19:18:00 14 /min Jayshree Seybold - External Body height 2022-04-23 19:18:00 157.5 cm Sharifa ey Seybold - External Body weight 2022-04-23 19:18:00 90.901 kg Sharifa ey Seybold - External BMI 2022-04-23 19:18:00 36.65 kg/m2 Sharifa ey Seybold - External Oxygen saturation in Arterial blood by Pulse oximetry 2022-04-23 19:18:00 99 /min Jayshree Seybo ld - External Systolic blood pressure 2022-01-22 20:40:00 136 mm[Hg] Jayshree Seybo ld - External Diastolic blood pressure 2022-01-22 20:40:00 60 mm[Hg] Jayshree Seybo ld - External Heart rate 2022-01-22 20:40:00 83 /min Kelse y Seybold - External Body temperature 2022-01-22 20:40:00 36.78 Eloise Jayshree Seybold - External Respiratory rate 2022-01-22 20:40:00 14 /min Jayshree Seybold - External Body height 2022-01-22 20:40:00 157.5 cm Sharifa ey Seybold - External Body weight 2022-01-22 20:40:00 90.719 kg Sharifa ey Seybold - External BMI 2022-01-22 20:40:00 36.58 kg/m2 Sharifa ey Seybold - External Systolic blood pressure 2021-07-20 18:50:00 130 mm[Hg] Jayshree Seybo ld Diastolic blood pressure 2021-07-20 18:50:00 66 mm[Hg] Jayshree Seybo ld Heart rate 2021-07-20 18:50:00 99 /min Kelse y Seybold Body temperature 2021-07-20 18:50:00 36.78 Eloise Jayshree Seybold Respiratory rate 2021-07-20 18:50:00 14 /min Jayshree Seybold Body height 2021-07-20 18:50:00 157.5 cm Sharifa ey Seybold Body weight 2021-07-20 18:50:00 89.812 kg Sharifa ey Seybold BMI 2021-07-20 18:50:00 36.21 kg/m2 Sharifa ey Seybold Systolic blood pressure 2021-06-07 20:53:00 100 mm[Hg] Jayshree Seybo ld Diastolic blood pressure 2021-06-07 20:53:00 46 mm[Hg] Jayshree Seybo ld Heart rate 2021-06-07 20:53:00 98 /min Kelse y Seybold Body temperature 2021-06-07 20:53:00 36.28 Eloise Jayshree Seybold Respiratory rate 2021-06-07 20:53:00 14 /min Jayshree Seybold Body height 2021-06-07 20:53:00 157.5 cm Sharifa ey Seybold Body weight 2021-06-07 20:53:00 89.359 kg Sharifa ey Seybold BMI 2021-06-07 20:53:00 36.03 kg/m2 Sharifa ey Seybold Systolic blood pressure 2021-03-23 20:01:00 110 mm[Hg] Jayshree Seybo ld Diastolic blood pressure 2021-03-23 20:01:00 56 mm[Hg] Jayshree Seybo ld Heart rate 2021-03-23 20:01:00 96 /min Kelse y Seybold Body temperature 2021-03-23 20:01:00 36.67 Eloise Jayshree Seybold Respiratory rate 2021-03-23 20:01:00 14 /min Jayshree Seybold Body height 2021-03-23 20:01:00 157.5 cm Sharifa ey Seybold Body weight 2021-03-23 20:01:00 91.627 kg Sharifa ey Seybold BMI 2021-03-23 20:01:00 36.95 kg/m2 Sharifa ey Seybold Oxygen saturation in Arterial blood by Pulse oximetry 2021-03-23 20:01:00 94 /min Jayshree manzanares Systolic blood pressure 2021-02-23 20:31:00 102 mm[Hg] Jayshree Enriquez ld Diastolic blood pressure 2021-02-23 20:31:00 60 mm[Hg] Jayshree manzanares Heart rate 2021-02-23 20:31:00 84 /min Jazz Ga Body temperature 2021-02-23 20:31:00 36.78 Eloise Jayshree Ga Respiratory rate 2021-02-23 20:31:00 14 /min Jayshree Ga Body height 2021-02-23 20:31:00 157.5 cm Sharifa Ga Body weight 2021-02-23 20:31:00 92.171 kg Sharifa Ga BMI 2021-02-23 20:31:00 37.17 kg/m2 Sharifa Ga height 2020-11-01 13:00:00 62 [in_i] Commo n [facility] weight 2020-11-01 13:00:00 203 [lb_av] Comm on [facility] temperature 2020-11-01 13:00:00 98.1 [degF] Com mon [facility] bmi 2020-11-01 13:00:00 37.13 kg/m2 Comm on [facility] oximetry 2020-11-01 13:00:00 96 % Commo n [facility] respiratory rate 2020-11-01 13:00:00 20 /min Common [facility] blood pressure systolic 2020-11-01 13:00:00 132 mm[Hg] Common [facility] blood pressure diastolic 2020-11-01 13:00:00 61 mm[Hg] Common [facility] height 2020-08-04 08:20:00 62 [in_i] Commo n [facility] weight 2020-08-04 08:20:00 200 [lb_av] Comm on [facility] temperature 2020-08-04 08:20:00 97.3 [degF] Com mon [facility] bmi 2020-08-04 08:20:00 36.58 kg/m2 Comm on [facility] oximetry 2020-08-04 08:20:00 96 % Commo n [facility] respiratory rate 2020-08-04 08:20:00 16 /min [facility] blood pressure systolic 2020-08-04 08:20:00 132 mm[Hg] [facility] blood pressure diastolic 2020-08-04 08:20:00 55 mm[Hg] [facility] height 2020-08-02 13:00:00 62 [in_i] Commo n [facility] weight 2020-08-02 13:00:00 200 [lb_av] Comm on [facility] temperature 2020-08-02 13:00:00 99 [degF] Comm on [facility] bmi 2020-08-02 13:00:00 36.58 kg/m2 Comm on [facility] oximetry 2020-08-02 13:00:00 93 % Commo n [facility] respiratory rate 2020-08-02 13:00:00 18 /min [facility] blood pressure systolic 2020-08-02 13:00:00 124 mm[Hg] [facility] blood pressure diastolic 2020-08-02 13:00:00 74 mm[Hg] [facility] Systolic blood pressure 2020-07-23 19:30:00 138 mm[Hg] [facility] Diastolic blood pressure 2020-07-23 19:30:00 72 mm[Hg] [facility] Heart rate 2020-07-23 19:30:00 76 /min [facility] Respiratory rate 2020-07-23 19:30:00 16 /min [facility] Oxygen saturation in Arterial blood by Pulse oximetry 2020-07-23 19:30:00 97 /min [facility] Body temperature 2020-07-23 18:00:00 37.06 Eloise [facility] Body weight 2020-07-23 17:57:00 88.905 kg [facility] Procedures Procedure Date / Time Performed Performing Clinician Source AUTHORIZATION FOR RELEASE OF PHI 2022-08-01 05:01:00 Doctor Unassigned, Kirkpatrick [facility] POCT GLUCOSE (AUTOMATED) 2022-07-24 21:35:00 Lavell Rivers [facility] POCT GLUCOSE (AUTOMATED) 2022-07-24 16:44:00 Lavell Rivers [facility] TROPONIN I 2022-07-24 15:26:00 Luis [facility] POCT GLUCOSE (AUTOMATED) 2022-07-24 12:57:00 [facility] TROPONIN I 2022-07-24 09:51:00 Luis [facility] URINALYSIS 2022-07-24 03:25:00 [facility] POCT GLUCOSE(AGE >30DAYS) 2022-07-24 02:52:00 Amanda Epperson [facility] MAGNESIUM 2022-07-24 02:51:00 [facility] TROPONIN I 2022-07-24 02:51:00 Amanda [facility] COMP. METABOLIC PANEL (21452) 2022-07-24 02:51:00 Amanda Epperson [facility] CBC WITH DIFF 2022-07-24 02:51:00 Amanda Epperson [facility] PROTHROMBIN TIME / INR 2022-07-24 02:51:00 Amanda Epperson [facility] D-DIMER 2022-07-24 02:51:00 Amanda Epperson [facility] ACTIVATED PARTIAL THRMPLAS MAX 2022-07-24 02:51:00 Amanda Epperson [facility] POCT GLUCOSE (AUTOMATED) 2022-07-24 02:51:00 Amanda Epperson [facility] N-TERMINAL PRO-BNP 2022-07-24 02:51:00 Amanda Epperson [facility] HB ECG ROUTINE & RHYTHM STRIP 2022-07-24 02:43:29 Amanda Epperson [facility] NOTICE OF PRIVACY PRACTICES 2022-07-24 02:34:43 Doctor Unassigned, Kirkpatrick [facility] CONSENT/REFUSAL FOR DIAGNOSIS AND TREATMENT 2022-07-24 02:34:07 Doctor Unassigned, Kirkpatrick [facility] EXTERNAL PROVIDER RECORDS 2022-03-13 06:01:00 Doctor Unassigned, Kirkpatrick [facility] LS RAPID FLU ASSAY-LAB TEST 2022-01-22 21:30:40 Kacie Hicks - External ASSIGNMENT OF BENEFITS 2020-08-08 18:04:15 Zohreh silverman Unassigned, Kirkpatrick [facility] HEPATIC FUNCTION PANEL (37150) (ALB,T.PRO,BILI T,BU/BC,ALT,AST,ALK PHOS) 2020-07-23 19:20:00 Diana Rosenberg [facility] BASIC METABOLIC PANEL (NA, K, CL, CO2, GLUCOSE, BUN, CREATININE, CA) 2020-07-23 19:20:00 Diana Rosenberg [facility] XR CHEST 1 VW 2020-07-23 18:36:10 Diana Rosenberg [facility] TROPONIN I 2020-07-23 18:28:00 [facility] 2020-07-23 18:28:00 Diana Rosenberg U [facility] N-TERMINAL PRO-BNP 2020-07-23 18:28:00 Jose Rosenberg [facility] NOTICE OF PRIVACY PRACTICES 2020-07-23 17:52:28 Doctor Unassigned, Kirkpatrick [facility] CONSENT/REFUSAL FOR DIAGNOSIS AND TREATMENT 2020-07-23 17:52:02 Doctor Unassigned, Kirkpatrick [facility] ASSIGNMENT OF BENEFITS 2020-03-07 14:53:00 Docto r Unassigned, Kirkpatrick [facility] Encounters Start Date/Time End Date/Time Encounter Type Admission Type Attending [facility] Facility Care Department Encounter ID Source 2022-08-08 14:59:00 Outpatient Sylvia Carrera STLMLC [id number] [facility] 2022-01-07 15:31:01 Outpatient Sylvia Carrera STLMLC [id number] [facility] 2021-05-09 14:07:10 Outpatient CottleSylvia rene STLA STLMLC [id number] [facility] 2021-05-09 13:29:03 Outpatient CottleSylvia rene STMARYLC STLMLC [id number] [facility] 2021-05-09 12:02:02 Outpatient Sylvia Carrera STLA STLMLC [id number] [facility] 2021-05-09 11:58:51 Outpatient Sylvia Carrera STLMLC [id number] [facility] 2021-05-09 11:01:47 Outpatient Sylvia Carrera STLA STLMLC [id number] [facility] 2021-05-09 11:01:16 Outpatient Sylvia Carrera STMARYLC STLMLC [id number] [facility] 2021-02-11 12:05:46 Emergency [facility] [id number] [facility] 2023-01-17 00:00:00 2023-01-17 00:00:00 OFFICE VISIT ESTAB PT LEVEL 4 STLMLC STLMLC [id number] [facility] 2022-12-17 00:00:00 2022-12-17 00:00:00 Outpatient LESLY CRUMP [id number] Jayshree Ga 2022-10-18 00:00:00 2022-10-18 00:00:00 OFFICE VISIT ESTAB PT LEVEL 4 STLMLC STLMLC [id number] [facility] 2022-09-23 15:30:00 2022-09-23 15:30:00 Outpatient PREZAS MARY JAYSHREE CHAVEZ [id number] Jayshree Hubbardbayron 2022-08-12 00:00:00 2022-08-12 00:00:00 OFFICE VISIT ESTAB [id number] 2022-08-01 00:00:00 2022-08-01 00:00:00 Orders Only Doctor Unassigned, Kirkpatrick [facility] 1..840.114 350.1.13.10 4.2.7.2.686 [id number] [facility] 2022-07-23 21:36:00 2022-07-24 17:42:00 Outpatient GREER [facility]ERS [facility] [id number] [facility] 2022-07-23 21:36:00 2022-07-24 17:42:00 Emergency Amanda Epperson [facility] 1.2.840.114 350.1.13.10 4.2.7.2.686 [id number] [facility] 2022-07-15 00:00:00 2022-07-15 00:00:00 Outpatient KACIE HICKS [id number] [facility] 2022-06-25 20:00:00 2022-06-25 20:00:00 Outpatient ALFONZO PATTON STRAHIL [facility] [id number] [facility] 2022-04-23 20:00:00 2022-04-23 20:00:00 Outpatient ALFONZO PATTON STRASDEli [facility] [id number] [facility] 2022-04-23 13:30:00 2022-04-23 13:30:00 Outpatient LESLY CRUMP [id number] Jayshree Ga 2022-04-02 00:00:00 2022-04-02 00:00:00 Outpatient KACIE HICKS [id number] [facility] 2022-03-13 00:00:00 2022-03-13 00:00:00 Orders Only Doctor Unassigned, Kirkpatrick [facility] 1.2.840.114 350.1.13.10 4.2.7.2.686 [id number] [facility] 2022-03-01 00:00:00 2022-03-01 00:00:00 Outpatient KACIE HICKS [id number] Jayshree [facility] 2022-01-22 16:45:00 2022-01-22 16:45:00 Outpatient AWP32-NOD JAYSHREE CHAVEZ [id number] Jayshree [facility] 2022-01-22 15:45:00 2022-01-22 15:45:00 Outpatient KACIE HICKS [id number] [facility] 2021-07-20 14:00:00 2021-07-20 14:15:00 Office Visit Kacie Hicks [place] 1.2.840.114 350.1.13.13 1.2.7.2.686 [id number] [facility] 2021-07-06 15:30:00 2021-07-06 15:30:00 Outpatient KACIE HICKS [id number] [facility] 2021-06-20 00:00:00 2021-06-20 00:00:00 Outpatient KACIE HICKS [id number] Jayshree [facility] 2021-06-07 15:00:00 2021-06-07 15:30:00 Office Visit Kacie Hicks [place] 1.2.840.114 350.1.13.13 [id number] [id number] [facility] 2021-05-28 00:00:00 2021-05-28 00:00:00 Outpatient KACIE HICKS [id number] Jayshree [facility] 2021-05-10 00:00:00 2021-05-10 00:00:00 (TEL) STLMLC ST[facility]C [id number] [facility] 2021-03-23 14:00:00 2021-03-23 14:30:00 Office Visit Kacie Hicks 1.2.840.114 350.1.13.13 1.2.7.2.686 [id number] [facility] 2021-03-23 00:00:00 2021-03-23 00:00:00 Outpatient KURT KACIESHARON CHAVEZ [id number] [facility] 2021-03-23 00:00:00 2021-03-23 00:00:00 Outpatient KACIE HICKS [id number] [facility] 2021-03-01 00:00:00 2021-03-01 00:00:00 Outpatient KACIE HICKS [id number] [facility] 2021-02-23 14:23:51 2021-02-23 14:53:51 Office Visit Kacie Hicks 1.2.840.114 350.1.13.13 1.2.7.2.686 [id number] [facility] 2021-02-23 09:30:00 2021-02-23 09:30:00 Outpatient LILLY HICKSSHARON CHAVEZ [id number] [facility] 2020-11-01 00:00:00 2020-11-01 00:00:00 OFFICE VISIT ESTAB PT LEVEL 4 STLMLC STL[facility]C [id number] [facility] 2020-09-28 00:00:00 2020-09-28 00:00:00 (TEL) STLMLC [facility]C [id number] [facility] 2020-09-08 00:00:00 2020-09-08 00:00:00 (TEL) STLMLC ST[facility]C [id number] [facility] 2020-08-16 00:00:00 2020-08-16 00:00:00 (TEL) STLMLC ST[facility]MLC [id number] [facility] 2020-08-08 13:04:53 2020-08-08 23:59:00 Hospital Encounter Radiology [facility] 1.2.840.114 350.1.13.10 4.2.7.2.686 [id number] [facility] 2020-08-08 00:00:00 2020-08-08 00:00:00 Outpatient R RADIOLOGY [facility] [id number] [facility] 2020-08-08 00:00:00 2020-08-08 00:00:00 Orders Only Doctor Unassigned, Kirkpatrick [facility] 1.2840.114 350.1.13.10 4.2.7.2.686 [id number] [facility] 2020-08-04 00:00:00 2020-08-04 00:00:00 PREV VISIT EST AGE 40-64 STLMLC STLMLC [id number] [facility] 2020-08-02 00:00:00 2020-08-02 00:00:00 OFFICE VISIT ESTAB PT LEVEL 4 STLMLC STLMLC [id number] [facility] 2020-07-23 13:00:00 2020-07-23 15:10:00 Emergency Diana Rosenberg [facility] 1.2840.114 350.1.13.10 4.2.7.2.686 [id number] [facility] 2020-07-23 00:00:00 2020-07-23 00:00:00 Orders Only Doctor Unassigned, Kirkpatrick [facility] 1.2840.114 350.1.13.10 4.2.7.2.686 [id number] [facility] 2020-07-01 15:05:00 2020-07-01 15:05:00 Outpatient [facility] [id number] [facility] 2020-06-10 14:50:00 2020-06-10 14:50:00 Outpatient [facility] [id number] [facility] 2020-05-05 00:00:00 2020-05-05 00:00:00 Outpatient [facility]C [facility] [id number] [facility] 2020-03-08 00:00:00 2020-03-08 00:00:00 Patient Secure Msg Doctor Unassigned, Kirkpatrick [facility] 1.2.840.114 350.1.13.10 4.2.7.2.686 [id number] [facility] 2020-03-07 09:00:28 2020-03-07 09:15:28 Laboratory Only Only, Adc Test Jarvis Flores [facility] 1.2.840.114 350.1.13.10 4.2.7.2.686 [id number] [facility] 2020-03-07 09:15:00 2020-03-07 09:15:00 Outpatient JARVIS MALIN [facility] [id number] [facility] 2020-03-07 00:00:00 2020-03-07 00:00:00 Orders Only Doctor Unassigned, Kirkpatrick [facility] 1.2.840.114 350.1.13.10 4.2.7.2.686 [id number] [facility] 2020-02-16 00:00:00 2020-02-16 00:00:00 Outpatient [facility]LMLC [facility] [id number] [facility] 2020-02-02 00:00:00 2020-02-02 00:00:00 Outpatient STLMLC [facility] [id number] [facility] 2019-11-11 11:36:00 2019-11-11 11:36:00 Outpatient [facility] [id number] [facility] 2019-11-04 13:00:00 2019-11-04 13:00:00 Outpatient [facility] [id number] [facility] 2019-10-28 16:30:00 2019-10-28 16:30:00 [facility] [id number] [facility] 2019-08-02 15:00:00 2019-08-02 15:00:00 [facility] Medicine [id number] [facility] 2019-07-09 12:42:00 2019-07-09 12:42:00 [facility] Medicine [id number] [facility] 2019-05-03 11:00:00 2019-05-03 11:00:00 [facility] Medicine [id number] [facility] 2019-02-03 14:00:00 2019-02-03 14:00:00 Outpatient [facility] Medicine [id number] [facility] 2018-12-01 09:00:00 2018-12-01 09:00:00 Outpatient [facility] Medicine [id number] [facility] 2018-11-04 15:33:00 2018-11-04 15:33:00 Outpatient [facility] [id number] [facility] 2018-11-03 11:00:00 2018-11-03 11:00:00 Outpatient [facility] Medicine [id number] [facility] Results Test Description Test Time Test Comments Results Result Co mments Source MICROALBUMIN, RANDOM URINE (W/CREATININE)2023-04-22 00:00:00* Test Item Value Reference Range Interpretation Comme nts CREATININE, RANDOM URINE (test code = 2161-8) 114 mg/dL See_Comment N [Automated [employer] brotips] The system which generated this result transmitted reference range: 20-275 mg/dL. The reference range was not used to interpret this result as normal/abnormal. ALBUMIN, URINE (test code = 88874-1) 2.4 mg/dL See Note: mg/dL N ALBUMIN/CREATININ E RATIO, RANDOM URINE (test code = 9318-7) 21 mcg/mg creat See_Comment N [Automated [employer] ge] The system which generated this result transmitted reference range: <30 mcg/mg creat. The reference range was not used to interpret this result as normal/abnormal. LIPID [id number] 00:00:00* Test Item Value Reference Range Interpretation Comme nts CHOL/HDLC RATIO (test code = 9830-1) 2.9 (calc) See_Comment N [Automated [employer] ge] The system which generated this result transmitted reference range: <5.0 (calc). The reference range was not used to interpret this result as normal/abnormal. CHOLESTEROL, TOTAL (test code = 2093-3) 165 mg/dL See_Comment N [Automated message] The system which generated this result transmitted reference range: <200 mg/dL. The reference range was not used to interpret this result as normal/abnormal. HDL CHOLESTEROL (test code = 2085-9) 57 mg/dL See_Comment N [Automated [employer] ge] The system which generated this result transmitted reference range: > OR = 50 mg/dL. The reference range was not used to interpret this result as normal/abnormal. LDL-CHOLESTEROL (test code = 82741-1) 90 mg/dL (calc) N NON HDL CHOLESTEROL (test code = 92377-0) 108 mg/dL (calc) See_Comment N [Automated message] The system which generated this result transmitted reference range: <130 mg/dL (calc). The reference range was not used to interpret this result as normal/abnormal. TRIGLYCERIDES (test code = 2571-8) 86 mg/dL See_Comment N [Automated [employer] ge] The system which generated this result transmitted reference range: <150 mg/dL. The reference range was not used to interpret this result as normal/abnormal. HEMOGLOBIN A1C WITH [id number] 00:00:00* Test Item Value Reference Range Interpretation Comme nts HEMOGLOBIN A1c (test code = 4548-4) 6.7 % of total Hgb See_Comment H [Automated message] The system which generated this result transmitted reference range: <5.7 % of total Hgb. The reference range was not used to interpret this result as normal/abnormal. MEAN PLASMA GLUCOSE (test code = 35601-2) 161 mg/dL (calc) POCT GLUCOSE (AUTOMATED)2022-07-24 21:42:36* Test Item Value Reference Range Interpretation Comme nts POCT GLU (test code = 3864902817) 64 mg/dL 70-110 L Lab Interpretation (test cod e = 33636-2) Abnormal [facility] GLUCOSE (AUTOMATED)2022-07-24 16:46:05* Test Item Value Reference Range Interpretation Comme nts POCT GLU (test code = 2271228424) 135 mg/dL 70-110 H Lab Interpretation (test cod e = 77376-8) Abnormal [facility] GLUCOSE (AUTOMATED)2022-07-24 13:00:05* Test Item Value Reference Range Interpretation Comme nts POCT GLU (test code = 0256030038) 87 mg/dL 70-110 Lab Interpretation (test cod e = 56547-7) [id number] 03:46:33* Test Item Value Reference Range Interpretation Comments D-DIMER (test code = 9606991368) See_Comment [Automated message] The system which generated this result transmitted reference range: <0.41 ?g/mL (FEU). The reference range was not used to interpret this result as normal/abnormal. ADRIANA (test code = ADRIANA) This test may be used in conjunction with a clinical pretest probability (PTP) assessment model to exclude venous thromboembolism (VTE) in patients suspected of deep venous thrombosis (DVT) and pulmonary embolism (PE) A D-Dimer value less than 0.50 ?g/ml (FEU) has a negative predicative value of 96 to 100% (95% CI)and 97 to 100% (95% CI) as an aid in the diagnosis of deep vein thrombosis (DVT) and pulmonary embolism when there is low or moderate pretest probability of PE or DVT. D-Dimer values are expressed in initial fibrinogen equivalent units (FEU)" The assay results should be used with other information, including the clinical context, in forming a diagnosis. Lab Interpretation (test code = 01841-1) Normal [facility] [id number] 03:42:08* Test Item Value Reference Range Interpretation Comme nts TROPONIN I (test code = 4615809214) 0.007 ng/mL <=0.034 ADRIANA (test code = ARDIANA) Reference (Normal) Range (defined by the 99th percentile reference limit): <= 0.034 ng/mL Note: Cardiac troponin begins to rise 3-4 hours after the onset of ischemia. Repeat in 4-6 hours if the sample was drawn within 3-4 hours of the onset of the symptom and found normal. Diagnosis of myocardial injury is made with acute changes in cTn concentrations with at least one serial sample above the 99th percentile upper reference limit (URL), taken together with the patient's clinical presentation. Biotin has been reported to cause a negative bias, interpret results relative to patient's use of biotin. Lab Interpretation (test code = 48768-8) Normal [facility] [id number] 03:38:49* Test Item Value Reference Range Interpretation Comme nts NT-proBNP (test code = 0787472072) 16 pg/mL <=125 ADRIANA (test code = ADRIANA) Biotin has been reported to cause a negative bias, interpret results relative to patient's use of biotin. Lab Interpretation (test code = 28840-1) [facility]OL[facility] (15604)2022-07-24 03:31:26* Test Item Value Reference Range Interpretation Comme nts NA (test code = 0680346094) 137 mmol/L 135-145 K (test code = 9257320788) 4.2 mmol/L 3.5-5.0 CL (test code = 3769303659) 101 mmol/L 98-108 CO2 TOTAL (test code = 4415004001) 29 mmol/L 23-31 AGAP (test code = 0085284732) 7 2-16 BUN (test code = 0806973693) 35 mg/dL 7-23 H GLUCOSE (test code = 5931250919) 224 mg/dL 70-110 H CREATININE (test code = 0674860199) 1.32 mg/dL 0.50-1.04 H TOTAL BILI (test code = 6055724124) 0.8 mg/dL 0.1-1.1 CALCIUM (test code = 4827032799) 9.6 mg/dL 8.6-10.6 T PROTEIN (test code = 7719792293) 7.1 g/dL 6.3-8.2 ALBUMIN (test code = 3880120796) 4.3 g/dL 3.5-5.0 ALK PHOS (test code = 6792726473) 129 U/L 34-122 H ALTv (test code = 1742-6) 24 U/L 5-35 AST(SGOT) (test code = 7526890501) 23 U/L 13-40 eGFR (test code = 6916551393) 41.9 mL/min/1.73m2 ADRIANA (test code = ADRIANA) Association of Glomerular Filtration Rate (GFR) and Staging of Kidney Disease* + --+ --+ ------+| GFR (mL/min/1.73 m2) ?| With Kidney Damage ?| ?Without Kidney Damage+ --------+ --------+ +| ?>90 ?| ?Stage one ?| ? Normal ?+ ---+ ---+ -------+| ?60-89 ?| ?Stage two ?| ? Decreased GFR ? + --+ --+ ------+| ?30-59 ?| ?Stage three ?| ? Stage three ? + --+ --+ ------+| ?15-29 ?| ?Stage four ? | ? Stage four ?+ ---+ ---+ -------+| ?<15 (or dialysis) ? ?| ?Stage five ? | ? Stage five ?+ ---+ ---+ -------+ *Each stage assumes the associated GFR level has been in effect for at least three months. ?Stages 1 to 5, with or without kidney disease, indicate chronic kidney disease. Notes: Determination of stages one and two (with eGFR >59mL/min/1.73 m2) requires estimation of kidney damage for at least three months as defined by structural or functional abnormalities of the kidney, manifested by either:Pathological abnormalities or Markers of kidney damage (including abnormalities in the composition of the blood or urine or abnormalities in imaging tests). Lab Interpretation (test code = 29360-0) [facility] 03:31:26* Test Item Value Reference Range Interpretation Comme nts MAGNESIUM (test code = 7925657330) 2.0 mg/dL 1.7-2.4 Lab Interpretation (test cod e = 19573-8) Normal [facility] THRMPLAS [id number] 03:17:33* Test Item Value Reference Range Interpretation Comme [facility] APTT Patient (test code = 3173-2) 26 See_Comment [Automated message] The system which generated this result transmitted reference range: 23 - 38 Seconds. The reference range was not used to interpret this result as normal/abnormal. ADRIANA (test code = ADRIANA) The [facility] patient population mean normal value for aPTT is 30 seconds. Lab Interpretation (test code = 27876-2) Normal [facility]eville[facility]th[facility] Time / [id number] 03:15:12* Test Item Value Reference Range Interpretation Comme [facility] PROTIME PATIENT (test code = 5964-2) 13.0 See_Comment [Automated [employer]] The system which generated this result transmitted reference range: 12.0 - 14.7 Seconds. The reference range was not used to interpret this result as normal/abnormal. INR (test code = 6301-6) 1.0 Normal INR <1.1; Warfarin Therapeutic range 2.0 to 3.0 or 2.5 to 3.5, depending upon the indications. Lab Interpretation (test code = 84245-1) Normal [facility] WITH [id number] 03:09:29* Test Item Value Reference Range Interpretation Comme [facility] WBC (test code = 6690-2) 6.32 See_Comment [Automated messa ge] The system which generated this result transmitted reference range: 4.30 - 11.10 10*3/?L. The reference range was not used to interpret this result as normal/abnormal. RBC (test code = 789-8) 4.42 See_Comment [Automated messa ge] The system which generated this result transmitted reference range: 3.93 - 5.25 10*6/?L. The reference range was not used to interpret this result as normal/abnormal. HGB (test code = 718-7) 14.3 g/dL 11.6-15.0 HCT (test code = 4544-3) 43.1 % 35.7-45.2 MCV (test code = 787-2) 97.5 fL 80.6-95.5 H MCH (test code = 785-6) 32.4 pg 25.9-32.8 MCHC (test code = 786-4) 33.2 g/dL 31.6-35.1 RDW-SD (test code = 35920-7) 46.2 fL 39.0-49.9 RDW-CV (test code = 788-0) 12.8 % 12.0-15.5 PLT (test code = 777-3) 276 See_Comment [Automated messa ge] The system which generated this result transmitted reference range: 166 - 358 10*3/?L. The reference range was not used to interpret this result as normal/abnormal. MPV (test code = 24880-9) 10.2 fL 9.5-12.9 NRBC/100 WBC (test code = 9253728936) 0.0 See_Comment [Automated [employer]] The system which generated this result transmitted reference range: 0.0 - 10.0 /100 WBCs. The reference range was not used to interpret this result as normal/abnormal. NRBC x10^3 (test code = 3750364281) See_Comment [Automated [employer]] The system which generated this result transmitted reference range: 10*3/?L. The reference range was not used to interpret this result as normal/abnormal. GRAN MAT (NEUT) % (test code = 770-8) 54.1 % IMM GRAN % (test code = 2820040036) 0.50 % LYMPH % (test code = 736-9) 35.1 % MONO % (test code = 5905-5) 7.3 % EOS % (test code = 713-8) 2.2 % BASO % (test code = 706-2) 0.8 % GRAN MAT x10^3(ANC) (test code = 3421892405) 3.42 10*3/uL 1.88-7.09 IMM GRAN x10^3 (test code = 5584506803) 0.03 10*3/uL 0.00-0.06 LYMPH x10^3 (test code = 731-0) 2.22 10*3/uL 1.32-3.29 MONO x10^3 (test code = 742-7) 0.46 10*3/uL 0.33-0.92 EOS x10^3 (test code = 711-2) 0.14 10*3/uL 0.03-0.39 BASO x10^3 (test code = 704-7) 0.05 10*3/uL 0.01-0.07 Lab Interpretation (test code = 06955-1) Abnormal [facility] GLUCOSE (AUTOMATED)2022-07-24 02:52:31* Test Item Value Reference Range Interpretation Comme [facility] POCT GLU (test code = 4043376021) 206 mg/dL 70-110 H Lab Interpretation (test cod e = 56441-3) Abnormal [facility] GLUCOSE(AGE >30DAYS)2022-07-24 02:52:00* Test Item Value Reference Range Interpretation Comme [facility] POCT Glu (age>30days) (test code = 3342) 206 mg/dL 70-110 A Lab Interpretation (test cod e = 91683-6) Abnormal [facility] RAPID FLU ASSAY-LAB [id number] 21:55:32 * Test Item Value Reference Range Interpretation Comme [facility] INFLUENZA B AG, EIA (test co de = 94568-7) Negative Negative Lab Interpretation (test cod e = 76479-4) Normal Jayshree Seybold - ExternalHEMOGLOBIN [id number] 00:00:00* Test Item Value Reference Range Interpretation Comme [facility] A1C (test code = 4548-4) 7.2 Basic Metabolic Panel (NA, K, CL, CO2, GLUCOSE, BUN, CREATININE, CA)2020-07-23 19:41:32* Test Item Value Reference Range Interpretation Comme [facility] NA (test code = 9477201029) 141 mmol/L 135-145 K (test code = 6151701476) 4.0 mmol/L 3.5-5.0 CL (test code = 4339898971) 104 mmol/L 98-108 CO2 TOTAL (test code = 9085869336) 30 mmol/L 23-31 AGAP (test code = 8343390123) 2-16 BUN (test code = 6444959146) 14 mg/dL 7-23 GLUCOSE (test code = 4695722784) 216 mg/dL 70-110 H CREATININE (test code = 1284713448) 0.74 mg/dL 0.50-1.04 CALCIUM (test code = 7743651523) 9.6 mg/dL 8.6-10.6 eGFR (test code = 9247306064) mL/min/1.73m2 ADRIANA (test code = ADRIANA) Association of Glomerular Filtration Rate (GFR) and Staging of Kidney Disease* + --+ --+ ------+| GFR (mL/min/1.73 m2) ?| With Kidney Damage ?| ?Without Kidney Damage+ --------+ --------+ +| ?>90 ?| ?Stage one ?| ? Normal ?+ ---+ ---+ -------+| ?60-89 ?| ?Stage two ?| ? Decreased GFR ? + --+ --+ ------+| ?30-59 ?| ?Stage three ?| ? Stage three ? + --+ --+ ------+| ?15-29 ?| ?Stage four ? | ? Stage four ?+ ---+ ---+ -------+| ?<15 (or dialysis) ? ?| ?Stage five ? | ? Stage five ?+ ---+ ---+ -------+ *Each stage assumes the associated GFR level has been in effect for at least three months. ?Stages 1 to 5, with or without kidney disease, indicate chronic kidney disease. Notes: Determination of stages one and two (with eGFR >59mL/min/1.73 m2) requires estimation of kidney damage for at least three months as defined by structural or functional abnormalities of the kidney, manifested by either:Pathological abnormalities or Markers of kidney damage (including abnormalities in the composition of the blood or urine or abnormalities in imaging tests). Lab Interpretation (test code = 17797-0) Abnormal [facility] (ALB, T.PRO, BILI T, BU/BC, ALT, AST, ALK PHOS)2020-07-23 19:41:32* Test Item Value Reference Range Interpretation Comme nts TOTAL BILI (test code = 4678434876) 0.7 mg/dL 0.1-1.1 BILI UNCON (test code = 1451575771) 0.7 mg/dL 0.1-1.1 BILI CONJ (test code = 9826055905) 0.0 mg/dL 0.0-0.3 T PROTEIN (test code = 9652663375) 7.2 g/dL 6.3-8.2 ALBUMIN (test code = 8467389580) 4.2 g/dL 3.5-5.0 ALK PHOS (test code = 1164651537) 144 U/L 34-122 H ALTv (test code = 1742-6) 17 U/L 5-35 AST(SGOT) (test code = 2347717070) 22 U/L 13-40 Lab Interpretation (test cod e = 99077-7) Abnormal [facility]evilleTroponin [id number] 19:09:30* Test Item Value Reference Range Interpretation Comme nts TROPONIN I (test code = 2570919761) 0.011 ng/mL See_Comment Hemolyzed specimen [Automated message] The system which generated this result transmitted reference range: <=0.034. The reference range was not used to interpret this result as normal/abnormal. ADRIANA (test code = ADRIANA) Equal or Less than 0.034 ng/ml---Normal ?Note: Cardiac troponin begins to rise 3-4 hours after the onset of ischemia. Repeat in 4-6 hours if the sample was drawn within 3-4 hours of the onset of the symptom and found normal. Between 0.035 and 0.120 ng/mL--- Borderline. Questionable myocardial injury or necrosis ? ?Note: Serial measurement may be necessary to confirm or exclude the diagnosis of myocardial injury or necrosis; Clinical correlation (symptoms, EKGs, imaging studies, and others) required; Repeat in 4-6 hours if clinically indicated. ? Equal or Higher than 0.121 ng/mL---Abnormal. Myocardial Injury or Necrosis Likely ? Biotin has been reported to cause a negative bias, interpret results relative to patient's use of biotin. ? Lab Interpretation (test code = 06220-9) Normal [facility]MIN[facility] [id number] 19:09:30* Test Item Value Reference Range Interpretation Comme nts NT-proBNP (test code = 7618557906) 29 pg/mL See_Comment Hemolyzed specimen [Automated message] The system which generated this result transmitted reference range: <=125. The reference range was not used to interpret this result as normal/abnormal. ADRIANA (test code = ADRIANA) Biotin has been reported to cause a negative bias, interpret results relative to patient's use of biotin. Lab Interpretation (test code = 45624-6) Normal [facility] 1 [id number] 18:50:33No acute cardiopulmonary process.EXAM: XR CHEST 1 VW COMPARISON: None available. HISTORY: cough FINDINGS: Support devices: Cardiac leads overlie the chest. Lungs/pleura: ?Lung volumes are normal. Diffuse haziness of the lungs isprobably related to soft tissue attenuation. Linear opacity at the leftlower lung near the costophrenic angle is probably related atelectasis. Noconfluent consolidation id entified. No pleural effusion or pneumothorax isidentified. Heart/Mediastinum: The cardiac silhouette is normal in size. Trachea isnear midline. [facility], Radiant Results Inft User - 07/23/2020 1:51 PM CDTEXAM: XR CHEST 1 VWCOMPARISON: None available.HISTORY: cough FINDINGS:Support devices: Cardiac leads overlie the chest. Lungs/pleura: Lung volumes are normal. Diffuse haziness of the lungs isprobably related to soft tissue attenuation. Linear opacity at the leftlower lung near the costophrenic angle is probably related atelectasis. Noconfluent consolidation identified. No pleural effusion or pneumothorax isidentified.Heart/Mediastinum: The cardiac silhouette is normal in size. Trachea isnear midline.IMPRESSIONNo acute cardiopulmonary process.[facility] with [id number] 18:43:10* Test Item Value Reference Range Interpretation Comme nts WBC (test code = 6690-2) See_Comment [Automated [employer]] The system which generated this result transmitted reference range: 4.30 - 11.10 10*3/?L. The reference range was not used to interpret this result as normal/abnormal. RBC (test code = 789-8) See_Comment [Automated [employer]] The system which generated this result transmitted reference range: 3.93 - 5.25 10*6/?L. The reference range was not used to interpret this result as normal/abnormal. HGB (test code = 718-7) 14.3 g/dL 11.6-15.0 HCT (test code = 4544-3) 43.7 % 35.7-45.2 MCV (test code = 787-2) 97.3 fL 80.6-95.5 H MCH (test code = 785-6) 31.8 pg 25.9-32.8 MCHC (test code = 786-4) 32.7 g/dL 31.6-35.1 RDW-SD (test code = 27768-9) 44.2 fL 39.0-49.9 RDW-CV (test code = 788-0) 12.3 % 12.0-15.5 PLT (test code = 777-3) See_Comment [Automated [employer]] The system which generated this result transmitted reference range: 166 - 358 10*3/?L. The reference range was not used to interpret this result as normal/abnormal. MPV (test code = 42529-5) 10.4 fL 9.5-12.9 NRBC/100 WBC (test code = 9574738438) See_Comment [Automated [employer] ss[employer]] The system which generated this result transmitted reference range: 0.0 - 10.0 /100 WBCs. The reference range was not used to interpret this result as normal/abnormal. NRBC x10^3 (test code = 7186212268) <0.01 See_Comment [Automated [employer]] The system which generated this result transmitted reference range: 10*3/?L. The reference range was not used to interpret this result as normal/abnormal. GRAN MAT (NEUT) % (test code = 770-8) 56.0 % IMM GRAN % (test code = 0708769080) 0.20 % LYMPH % (test code = 736-9) 28.2 % MONO % (test code = 5905-5) 6.0 % EOS % (test code = 713-8) 8.6 % BASO % (test code = 706-2) 1.0 % GRAN MAT x10^3(ANC) (test code = 6502076991) 3.26 10*3/uL 1.88-7.09 IMM GRAN x10^3 (test code = 3204642362) <0.03 0.00-0.06 LYMPH x10^3 (test code = 731-0) 1.64 10*3/uL 1.32-3.29 MONO x10^3 (test code = 742-7) 0.35 10*3/uL 0.33-0.92 EOS x10^3 (test code = 711-2) 0.50 10*3/uL 0.03-0.39 H BASO x10^3 (test code = 704-7) 0.06 10*3/uL 0.01-0.07 Lab Interpretation (test code = 10653-0) Abnormal [facility] S[facility] JOLENE BILAT W/CAD3D SCR JOLENE BILAT W/CAD3D SCR JOLENE BILAT W/CAD3D SCR JOLENE BILAT W/CAD
--- NOTE | 2023-05-09 18:10 | RAD REPORT ---
EXAM DESCRIPTION: RAD - Shoulder Left 2 View - 05/09/2023 5:48 pm CLINICAL HISTORY: PAIN COMPARISON: No comparisons FINDINGS: Mildly impacted left proximal humerus surgical neck fracture noted. No dislocation. Bones are quite osteopenic.
--- NOTE | 2023-05-09 18:42 | ER ---
Nurse's Notes [facility] Name: Reyna Griffin Age: 53 yrs Sex: Female : 1970 Arrival Date: 05/09/2023 Time: 17:09 Bed 5 Private MD: Diagnosis: Left proximal humerus fracture without displacement. Presentation: 05/09 17:11 Chief complaint: EMS states: Pt was exercising, tripped, fell, and hit her left rs5 shoulder. 17:11 Coronavirus screen: At this time, the client does not indicate any symptoms associated rs5 with coronavirus-19. Ebola Screen: No symptoms or risks identified at this time. Initial Sepsis Screen: Does the patient meet any 2 criteria? No. Patient's initial sepsis screen is negative. Does the patient have a suspected source of infection? No. Patient's initial sepsis screen is negative. Risk Assessment: Do you want to hurt yourself or someone else? Patient reports no desire to harm self or others. Onset of symptoms was May 09, 2023. 17:11 Method Of Arrival: EMS: [facility] rs5 17:11 Acuity: REMEDIOS 3 rs5 Historical: - Allergies: 17:11 No Known Allergies; rs5 - PMHx: 17:11 Hypothyroidism; Diabetes mellitus; Hypertensive disorder; Hypercholesterolemia; rs5 - PSHx: 17:11 None; rs5 - Immunization history:: Adult Immunizations up to date. - Social history:: Smoking status: Patient denies any tobacco usage or history of. Screenin:11 [facility] ED Fall Risk Assessment (Adult) History of falling in the last 3 months, rs5 including since admission Yes- single mechanical fall (1 pt) Confusion or Disorientation No (0 pts) Intoxicated or Sedated No (0 pts) Impaired Gait No (0 pts) Mobility Assist Device Used No (0 pt) Altered Elimination No (0 pt) Score/Fall Risk Level 0 - 2 = Low Risk Oriented to surroundings, Maintained a safe environment. 17:11 Abuse screen: Denies threats or abuse. Nutritional screening: No deficits noted. rs5 Tuberculosis screening: No symptoms or risk factors identified. Assessment: 17:11 General: Appears in no apparent distress. uncomfortable, Behavior is cooperative. Pain: rs5 Complains of pain in left shoulder Pain does not radiate. Pain currently is 7 out of 10 on a pain scale. Quality of pain is described as aching, tender, Pain began 2 hours ago. Is continuous, Aggravated by weight bearing. 17:11 Neuro: Level of Consciousness is awake, alert, obeys commands, Oriented to person, rs5 place, time, situation. Cardiovascular: Heart tones S1 S2 present Capillary refill < 3 seconds in bilateral fingers Patient's skin is warm and dry. Rhythm is regular. Respiratory: Airway is patent Respiratory effort is even, unlabored, Respiratory pattern is regular, symmetrical, Breath sounds are clear bilaterally. GI: Abdomen is round non-distended, Bowel sounds present X 4 quads. Abd is soft and non tender X 4 quads. : No signs and/or symptoms were reported regarding the genitourinary system. EENT: No signs and/or symptoms were reported regarding the EENT system. Derm: Skin is intact, Skin is pink, warm \T\ dry. Musculoskeletal: Range of motion: limited in left arm. 18:30 Reassessment: Patient and/or family updated on plan of care and expected duration. Pain rs5 level reassessed. Patient is alert, oriented x 3, equal unlabored respirations, skin warm/dry/pink. Patient states feeling better. Patient states symptoms have improved. Pain: Complains of pain in right shoulder Pain does not radiate. Pain currently is 5 out of 10 on a pain scale. Quality of pain is described as aching, Is continuous. Vital Signs: 17:11 BP 144 / 83; Pulse 80; Resp 18; Temp 98.4(O); Pulse Ox 99% on R/A; rs5 17:46 BP 145 / 84; Pulse 77; Resp 18; Pulse Ox 99% on R/A; rs5 18:40 BP 135 / 80; Pulse 68; Resp 18; Pulse Ox 99% on R/A; rs5 ED Course: 17:10 Patient arrived in ED. eb 17:10 Wilberto Tinajero DO is Attending Physician. ms3 17:11 Patient has correct armband on for positive identification. Bed in low position. Call rs5 light in reach. Side rails up X2. 17:13 Bud Padgett, [facility] is Primary Nurse. rs5 17:21 Triage completed. rs5 17:50 Shoulder Left (2 View) XRAY In Process Unspecified. EDMS 18:00 Attending Physician role handed off by Wilberto Tinajero DO sp4 18:00 Owne Rizo MD is Attending Physician. sp4 18:41 Jose Wolfe MD is Referral Physician. sp4 18:46 No provider procedures requiring assistance completed. Patient did not have IV access rs5 during this emergency room visit. 18:50 Splint/sling/ice applied as appropriate. rs5 Administered Medications: 17:20 Drug: HYDROcodone-acetaminophen PO 5 mg-325 mg 1 tabs PO once Route: PO; rs5 17:46 Follow up: Response: No adverse reaction; Pain is decreased rs5 18:26 Drug: Ondansetron PO 4 mg PO once Route: PO; rs5 18:45 Follow up: Response: No adverse reaction rs5 18:35 Drug: HYDROcodone-acetaminophen PO 5 mg-325 mg 1 tabs PO once Route: PO; rs5 18:45 Follow up: Response: No adverse reaction rs5 18:35 Drug: Methocarbamol PO 750 mg PO once Route: PO; rs5 18:45 Follow up: Response: No adverse reaction rs5 Medication: 17:46 VIS not applicable for this client. rs5 Outcome: 18:41 Discharge ordered by . sp4 18:56 Discharged to home ambulatory, rs5 18:56 Condition: stable 18:56 Discharge instructions given to patient, Instructed on discharge instructions, follow up and referral plans. Demonstrated understanding of instructions, follow-up care, 18:57 Patient left the ED. ld1 Signatures: Dispatcher [employer] [facility] Shanna Calderon Wilberto Tinajero DO DO ms3 Kisha Tinajero RN RN ld1 Bud Padgett RN RN rs5 Owen Rizo MD MD sp4
--- NOTE | 2023-05-09 18:42 | EDPHYS ---
Physician Documentation [facility] Name: Reyna Griffin Age: 53 yrs Sex: Female : 1970 Arrival Date: 05/09/2023 Time: 17:09 Bed 5 Private MD: ED Physician Owen Rizo HPI: 05/09 17:53 This 53 yrs old Female presents to ER via EMS with complaints of left shoulder ms3 pain. 17:53 53-year-old female with past medical history of hypothyroidism, diabetes, hypertension, ms3 hypercholesterolemia presents to the emergency department via [facility] for left shoulder pain. Patient was working out and performing a plank when she fell forward injuring her left shoulder. Patient states her pain is a 9/10. Patient states pain is worse with movement. Patient denies alleviating factors. Historical: - Allergies: 17:11 No Known Allergies; rs5 - PMHx: 17:11 Hypothyroidism; Diabetes mellitus; Hypertensive disorder; Hypercholesterolemia; rs5 - PSHx: 17:11 None; rs5 - Immunization history:: Adult Immunizations up to date. - Social history:: Smoking status: Patient denies any tobacco usage or history of. ROS: 17:53 Constitutional: Negative for fever, and chills. Neck: Negative for injury, pain, and ms3 swelling, Cardiovascular: Negative for chest pain, and palpitations. Respiratory: Negative for shortness of breath, cough, wheezing, and pleuritic chest pain, Abdomen/GI: Negative for abdominal pain, nausea, vomiting, diarrhea, and constipation, 17:53 MS/extremity: Positive for pain, tenderness, of the Left shoulder, Exam: 17:53 Constitutional: This is a well developed, well nourished patient who is awake, alert, ms3 and in no acute distress. Head/Face: Normocephalic, atraumatic. Chest/axilla: Normal chest wall appearance and motion. Nontender with no deformity. Cardiovascular: Regular rate and rhythm with a normal S1 and S2. No gallops, murmurs, or rubs. Normal PMI, no JVD. No pulse deficits. Respiratory: Lungs have equal breath sounds bilaterally, clear to auscultation and percussion. No rales, rhonchi or wheezes noted. No increased work of breathing, no retractions or nasal flaring. Abdomen/GI: Soft, non-tender, with normal bowel sounds. No distension or tympany. No guarding or rebound. No evidence of tenderness throughout. 17:53 Musculoskeletal/extremity: Extremities: noted in the Left shoulder: pain, tenderness, Vital Signs: 17:11 BP 144 / 83; Pulse 80; Resp 18; Temp 98.4(O); Pulse Ox 99% on R/A; rs5 17:46 BP 145 / 84; Pulse 77; Resp 18; Pulse Ox 99% on R/A; rs5 18:40 BP 135 / 80; Pulse 68; Resp 18; Pulse Ox 99% on R/A; rs5 MDM: 17:11 Patient medically screened. ms3 17:53 Differential diagnosis: dislocation, closed fracture, contusion. ms3 18:39 Data reviewed: vital signs, nurses notes, radiologic studies, plain films. sp4 Consideration of Admission/Observation Escalation of care including admission/observation considered. ED course: X-ray revealed mildly impacted left proximal humerus surgical neck fracture, no dislocation. Patient will be provided with arm sling and referral to orthopedist Dr. Walker. 05/09 17:11 Order name: Shoulder Left (2 View) XRAY; Complete Time: 18:39 ms3 05/09 18:16 Order name: Sling; Complete Time: 18:45 sp4 Administered Medications: 17:20 Drug: HYDROcodone-acetaminophen PO 5 mg-325 mg 1 tabs PO once Route: PO; rs5 17:46 Follow up: Response: No adverse reaction; Pain is decreased rs5 18:26 Drug: Ondansetron PO 4 mg PO once Route: PO; rs5 18:45 Follow up: Response: No adverse reaction rs5 18:35 Drug: HYDROcodone-acetaminophen PO 5 mg-325 mg 1 tabs PO once Route: PO; rs5 18:45 Follow up: Response: No adverse reaction rs5 18:35 Drug: Methocarbamol PO 750 mg PO once Route: PO; rs5 18:45 Follow up: Response: No adverse reaction rs5 Disposition Summary: 05/09/23 18:41 Discharge Ordered Problem: new sp4 Symptoms: have improved sp4 Condition: Stable sp4 Diagnosis - Left proximal humerus fracture without displacement. sp4 Followup: sp4 - With: Jose Walker MD - When: 2 - 3 days - Reason: Recheck today's complaints Discharge Instructions: - Discharge Summary Sheet sp4 - Humerus Fracture Treated With Immobilization, [id number] sp4 Forms: - Patient Portal Instructions sp4 Prescriptions: - acetaminophen-codeine 300-60 mg Oral tablet - take 1 tablet ORAL route every 6 hours PRN pain; 20 tablet; Refills: 0, Product sp4 Selection Permitted - Ibuprofen 800 mg Oral Tablet - take 1 tablet ORAL route every 8 hours As needed take with food; 30 tablet; sp4 Refills: 0, Product Selection Permitted - methocarbamol 750 mg Oral tablet - take 2 tablets ORAL route every 6 hours for 2 days PRN pain; 60 tablet; sp4 Refills: 0, Product Selection Permitted Signatures: Dispatcher [employer] EDWilberto Sanchez DO DO ms3 Bud Padgett RN RN rs5 Owen Rizo MD MD sp4
[2023-05-09 20:05] VITALS: TEMP 98.4; O2SAT 99
[2023-05-09 20:21] VITALS: BP 135/80
== END ==
LOC: ER 17:09
DX: S42.202A Unspecified fracture of upper end of left humerus, initial encounter for closed fracture (principal)
CPT/HCPCS: 73030; Q0162

== ENCOUNTER 2025-02-09 17:35 | Emergency (ER) | payer OTHER ==
[2025-02-09 19:27] LABS: Absolute Lymphocytes (CBC) 1.5 K/uL (0.7-4.9); Hematocrit 39.4 % (36.0-45.0); Hemoglobin 13.4 g/dL (12.0-15.0); MCH 33.1 pg (27.0-35.0); MCHC 34.1 g/dL (32.0-36.0); MCV 97.2 fL (80-100); MPV 8.2 fL (7.6-11.3); Nucleated RBC Absolute Count 0.0 (0-0); Nucleated Red Blood Cells % 0.0 % (0-0); RBC Red Blood Cell Count 4.05 M/uL (3.86-4.86); White Blood Count 6.30 thou/uL (4.3-10.9)
[2025-02-09 20:07] LABS: ALT/SGPT 35 U/L (13-56); AST/SGOT 20 U/L (15-37); Albumin 3.4 g/dL (3.4-5.0); Albumin/Globulin Ratio 1.0 (1.1-1.8); Alkaline Phosphatase 125 U/L (45-117); Anion Gap 6.1 mEq/L (5.0-15.0); BUN Blood Urea Nitrogen 7 mg/dL (7-18); Globulin 3.5 g/dL (2.3-3.5); Glucose Level 104 mg/dL (74-106); Magnesium 2.1 mg/dL (1.6-2.4); Potassium 3.1 mEq/L (3.5-5.1); Troponin High Sensitivity 4.3 pg/mL (<58.9)
[2025-02-09 20:09] LABS: Bilirubin Indirect, Calculated 0.2 mg/dL (0.2-0.8)
--- NOTE | 2025-02-09 20:24 | EDPHYS ---
Physician Documentation [facility] Name: Reyna Griffin Age: 55 yrs Sex: Female : 1970 Arrival Date: 02/09/2025 Time: 17:35 Bed 16 Private MD: ED Physician Wilberto Tinajero HPI: 02/09 18:00 This 55 yrs old Female presents to ER via Ambulatory with complaints of cp Abnormal Lab Results. 18:00 Patient is a 55-year-old female with past medical history significant for diabetes, cp hypertension, hypothyroidism and hyperlipidemia who presents to the emergency department with reported low potassium. Patient reports she had pre-procedure blood work drawn today for an upcoming colonoscopy next week. Patient reports she was notified that her potassium was low and that she needed to proceed to an emergency department for evaluation. Patient reports having a headache, otherwise, no other complaints expressed. Historical: - Allergies: 17:47 No Known Allergies; bp - PMHx: 17:47 diabetes mellitus; Hypercholesterolemia; Hypertensive disorder; Hypothyroidism; bp - Immunization history:: Adult Immunizations up to date. - Infectious Disease History:: Denies. - Social history:: Smoking status: Patient denies any tobacco usage or history of. ROS: 18:05 Constitutional: Negative for body aches, chills, fever, poor PO intake, cp 18:05 Cardiovascular: Negative for chest pain, edema, palpitations, cp 18:05 Respiratory: Negative for cough, shortness of breath, wheezing, 18:05 Abdomen/GI: Negative for abdominal pain, vomiting, diarrhea, constipation, 18:05 : Negative for urinary symptoms, 18:05 Neuro: Positive for headache, Negative for altered mental status, dizziness, syncope, weakness, 18:05 All other systems are negative, Exam: 18:10 Constitutional: The patient appears in no acute distress, alert, awake, comfortable, cp non-diaphoretic, non-toxic, well developed, well nourished, 18:10 Head/Face: Normocephalic, atraumatic. cp 18:10 Eyes: Periorbital structures: appear normal, Pupils: equal, round, and reactive to light and accomodation, Extraocular movements: intact throughout, Conjunctiva: normal, no exudate, no injection, Sclera: no appreciated abnormality, Lids and lashes: appear normal, bilaterally, 18:10 ENT: External ear(s): are unremarkable, Nose: is normal, Mouth: Lips: moist, Oral mucosa: moist, Posterior pharynx: Airway: no evidence of obstruction, patent, 18:10 Chest/axilla: Inspection: normal, 18:10 Cardiovascular: Rate: normal, Rhythm: regular, Edema: is not appreciated, JVD: is not appreciated, 18:10 Respiratory: the patient does not display signs of respiratory distress, Respirations: normal, no use of accessory muscles, no retractions, labored breathing, is not present, Breath sounds: are clear throughout, no decreased breath sounds, no stridor, no wheezing, 18:10 Abdomen/GI: Inspection: abdomen appears normal, Palpation: abdomen is soft and non-tender, in all quadrants, 18:10 Neuro: Orientation: to person, place \T\ time. Mentation: is normal, Cerebellar function: is grossly normal, Motor: moves all fours, strength is normal, Sensation: is normal, 19:45 ECG was reviewed by the Attending Physician. cp Vital Signs: 17:47 BP 146 / 71; Pulse 69; Resp 18; Temp 97.5; Pulse Ox 98% ; bp 20:57 BP 139 / 84; Pulse 63; Resp 18; Temp 97.6(O); Pulse Ox 97% on R/A; Pain 0/10; kd4 20:57 Pain Scale: Adult kd4 Strawberry Coma Score: 20:00 Eye Response: spontaneous(4). Verbal Response: oriented(5). Motor Response: obeys kd4 commands(6). Total: 15. MDM: 20:22 Data reviewed: vital signs, nurses notes, lab test result(s), EKG, and as a result, I cp will discharge patient. 20:22 Differential Diagnosis electrolyte abnormality, arrhythmia, dehydration. I considered cp the following discharge prescriptions or medication management in the emergency department Medications were administered in the Emergency Department. See MAR. Independent interpretation of the following test(s) in the Emergency Department EKG: See my EKG interpretation above CT Scan: My interpretation is head. Care significantly affected by the following chronic conditions: Diabetes, Hypertension. Counseling: I had a detailed discussion with the patient and/or guardian regarding the historical points, exam findings, and any diagnostic results supporting the discharge/admit diagnosis, lab results, the need for outpatient follow up, a family practitioner, to return to the emergency department if symptoms worsen or persist or if there are any questions or concerns that arise at home. Response to treatment: the patient's symptoms have mildly improved after treatment, and as a result, I will discharge patient. 20:23 Medical Screening Exam initiated 02/09 17:56 Order name: Basic Metabolic Panel; Complete Time: 20:11 02/09 20:12 Interpretation: Normal except: K 3.1; CL 109. 02/09 17:56 Order name: CBC with Diff; Complete Time: 19:41 02/09 19:42 Interpretation: Reviewed. 02/09 17:56 Order name: LFT's; Complete Time: 20:11 02/09 20:12 Interpretation: Normal except: ALK 125; A/G 1.0. 02/09 17:56 Order name: Magnesium; Complete Time: 20:11 02/09 17:56 Order name: Troponin HS; Complete Time: 20:11 02/09 17:56 Order name: EKG; Complete Time: 17:57 02/09 17:56 Order name: Cardiac monitoring; Complete Time: 19:46 02/09 17:56 Order name: EKG - Nurse/Tech; Complete Time: 19:46 02/09 17:56 Order name: IV Saline Lock; Complete Time: 19:23 02/09 17:56 Order name: Labs collected and sent; Complete Time: 19:23 02/09 17:56 Order name: O2 Per Protocol; Complete Time: 19:46 02/09 17:56 Order name: O2 Sat Monitoring; Complete Time: 19:46 cp EC:45 Rate is 57 beats/min. Rhythm is regular. LA interval is normal. QRS interval is normal. cp QT interval is normal. T waves are Inverted in lead aVR. Interpreted by me. Reviewed by me. Administered Medications: 20:13 CANCELLED (Physician Discretion): potassium [id number] meq IV at calculated rate once; cp administer over 1-2 hours 20:58 Drug: Potassium PO Effervescent Tablet 50 mEq PO once; dissolve in 4 ounces of water or kd4 juice Route: PO; 20:59 Follow up: Response: No adverse reaction kd4 20:58 Drug: Potassium PO Effervescent Tablet 25 mEq PO once; dissolve in 4 ounces of water or kd4 juice Route: PO; 20:59 Follow up: Response: No adverse reaction kd4 Disposition: 02/10 19:15 Chart complete. cp Disposition Summary: 02/09/25 20:23 Discharge Ordered Notes: Location: Home cp Problem: new cp Symptoms: have improved cp Condition: Stable cp Diagnosis - Hypokalemia cp Followup: cp - With: Private Physician - When: 2 - 3 days - Reason: Recheck today's complaints Discharge Instructions: - Discharge Summary Sheet cp - Potassium Content of Foods cp - Hypokalemia cp Forms: - Medication Reconciliation Form cp - Antibiotic Education cp - Prescription Opioid Use cp - Patient Portal Instructions cp - Leadership Thank You Letter cp Prescriptions: - Potassium Chloride 10 mEq Oral capsule, extended release - take 1 tablet ORAL route every 12 hours for 7 days; 14 tablet; Refills: 0, cp Product Selection Permitted Signatures: Dispatcher [employer] EDMS Dl Palmer PA-C PA-C cp Peltier, Brian RN RN bp Burak Golden RN RN kd4 Corrections: (The following items were deleted from the chart) 02/09 17:57 17:57 BASIC METABOLIC PANEL+C.LAB.BRZ ordered. EDMS EDMS 17:57 17:57 CBC+H.LAB.BRZ ordered. EDMS EDMS 17:57 17:57 HEPATIC FUNCTION+C.LAB.BRZ ordered. EDMS EDMS 17:57 17:57 MAGNESIUM+C.LAB.BRZ ordered. EDMS EDMS 17:57 17:57 Troponin High Sensitivity+C.LAB.BRZ ordered. EDMS EDMS 20:13 20:13 Potassium Chloride IV 20 mEq IV at calculated rate once; administer over 1-2 cp hours ordered. cp
--- NOTE | 2025-02-09 20:24 | ER ---
Nurse's Notes [facility] Name: Reyna Griffin Age: 55 yrs Sex: Female : 1970 Arrival Date: 02/09/2025 Time: 17:35 Bed 16 Private MD: Diagnosis: Hypokalemia Presentation: 02/09 17:47 Chief complaint: Patient states: LOW POTASSIUM ON PRE-OP LABS, DRAWN AT 1500. bp Coronavirus screen: At this time, the client does not indicate any symptoms associated with coronavirus-19. Ebola Screen: No symptoms or risks identified at this time. Initial Sepsis Screen: Does the patient meet any 2 criteria? No. Patient's initial sepsis screen is negative. Does the patient have a suspected source of infection? No. Patient's initial sepsis screen is negative. Risk Assessment: Do you want to hurt yourself or someone else? Patient reports no desire to harm self or others. Onset of symptoms is unknown. 17:47 Method Of Arrival: Ambulatory bp 17:47 Acuity: REMEDIOS 3 bp Historical: - Allergies: 17:47 No Known Allergies; bp - PMHx: 17:47 diabetes mellitus; Hypercholesterolemia; Hypertensive disorder; Hypothyroidism; bp - Immunization history:: Adult Immunizations up to date. - Infectious Disease History:: Denies. - Social history:: Smoking status: Patient denies any tobacco usage or history of. Screenin:00 [facility] ED Fall Risk Assessment (Adult) History of falling in the last 3 months, kd4 including since admission No falls in past 3 months (0 pts) Confusion or Disorientation No (0 pts) Intoxicated or Sedated No (0 pts) Impaired Gait No (0 pts) Mobility Assist Device Used No (0 pt) Altered Elimination No (0 pt) Score/Fall Risk Level 0 - 2 = Low Risk Oriented to surroundings, Maintained a safe environment. Abuse screen: Denies threats or abuse. Nutritional screening: No deficits noted. Tuberculosis screening: No symptoms or risk factors identified. Assessment: 20:00 General: Appears in no apparent distress. comfortable, well groomed, Behavior is calm, kd4 cooperative, appropriate for age, Denies fever, fatigue, chills. Pain: Denies pain. Neuro: No deficits noted. Denies weakness dizziness. Cardiovascular: Denies chest pain, shortness of breath. Respiratory: No deficits noted. GI: Reports diarrhea. 20:04 General: Received patient from triage a/o x 4. kd4 20:59 General: d/c instruction provided to patient, patient verbalizes understanding. iv line kd4 d/c. Vital Signs: 17:47 BP 146 / 71; Pulse 69; Resp 18; Temp 97.5; Pulse Ox 98% ; bp 20:57 BP 139 / 84; Pulse 63; Resp 18; Temp 97.6(O); Pulse Ox 97% on R/A; Pain 0/10; kd4 20:57 Pain Scale: Adult kd4 Kingsley Coma Score: 20:00 Eye Response: spontaneous(4). Verbal Response: oriented(5). Motor Response: obeys kd4 commands(6). Total: 15. ED Course: 17:38 Patient arrived in ED. al6 17:38 Wilberto Tinajero DO is Attending Physician. ms3 17:38 Dl Palmer [facility]. cp 17:47 Triage completed. bp 17:47 Arm band placed on. bp 19:45 EKG done, by ED staff, reviewed by Dl Palmer PA-C. oe 20:00 Patient has correct armband on for positive identification. Side rails up X 1. Client kd4 placed on continuous cardiac and pulse oximetry monitoring. NIBP monitoring applied. court recording monitor on. Pulse ox on. NIBP on. 20:00 Initial lab(s) drawn, by ED staff, sent to lab. Inserted saline lock: 20 gauge in right kd4 antecubital area, using aseptic technique. 20:36 Burak Golden, RN is Primary Nurse. kd4 20:44 No provider procedures requiring assistance completed. kd4 20:57 IV discontinued. kd4 20:58 Provided Education on: d/c education. kd4 Administered Medications: 20:13 CANCELLED (Physician Discretion): potassium [id number] meq IV at calculated rate once; cp administer over 1-2 hours 20:58 Drug: Potassium PO Effervescent Tablet 50 mEq PO once; dissolve in 4 ounces of water or kd4 juice Route: PO; 20:59 Follow up: Response: No adverse reaction kd4 20:58 Drug: Potassium PO Effervescent Tablet 25 mEq PO once; dissolve in 4 ounces of water or kd4 juice Route: PO; 20:59 Follow up: Response: No adverse reaction kd4 Medication: 20:00 VIS not applicable for this client. kd4 Outcome: 20:23 Discharge ordered by . akash 20:56 Discharged to home ambulatory, kd4 20:56 Condition: stable 20:56 Discharge instructions given to patient, Instructed on discharge instructions, follow up and referral plans. medication usage, Demonstrated understanding of instructions, follow-up care, medications, Prescriptions given X 1, 21:00 Patient left the ED. kd4 Signatures: Dl Palmer, IZABELAC PALurdesC Michael Navarrete Brian, RN RN bp Wilberto Tinajero DO DO ms3 Burak Golden RN RN kd4 Liliana May al6
[2025-02-09] MEDS ORDERED: POTASSIUM 25 MEQ EFFERV TAB ONE (20:41)
[2025-02-09 21:05] VITALS: BP 139/84; TEMP 97.6; O2SAT 97
== END 2025-02-09 21:00 | disposition home or self-care (01) ==
LOC: ER 17:35
DX: E87.6 Hypokalemia (principal)
CPT/HCPCS: 36415; 80048; 80076; 83735; 84484; 85025; 93005; 99284